=== PATIENT | female | born 1955 | race Caucasian/White ===

== ENCOUNTER 2016-12-04 15:15 | Inpatient (IN) | payer MEDICARE ==
[~2016-12-04] VITALS: Ht 152.4 cm; Wt 49.7 kg
[2016-12-04 16:45] VITALS: BP 120/81; PULSE 90; RESP 16; TEMP 97.8; O2SAT 97
[2016-12-04] MEDS ORDERED: PREG25 PO (17:04)
[2016-12-04] MEDS ORDERED: OXYC-395 PO (17:04)
[2016-12-04] MEDS ORDERED: MORP1TAB24 PO (17:04)
[2016-12-04] MEDS ORDERED: DIATRIZOATE MEGLUM/DIATRIZOATE SOD 9 ML CUP PO ONE (17:15)
[2016-12-04] MEDS ORDERED: PANTOPRAZOLE SOD 40 MG DELAYED RELEASE TAB PO ONE (17:30)
[2016-12-04] MEDS: SODIUM CHLOR 0.9% 1000 ML INJ 1,000 ML IV SCH (17:30)
[2016-12-04 20:00] VITALS: BP 123/85; PULSE 100; RESP 16; TEMP 97.3; O2SAT 94
--- NOTE | 2016-12-04 20:28 | MH ---
cc: MARGARITO BRASHER,MEIR Dueñas M.D. DATE OF ADMISSION: 12/04/2016 PRIMARY CARE PHYSICIAN Meir Cordero MD CHIEF COMPLAINT The patient was admitted directly from Dr. Cordero' office for evaluation of recurrent nausea, vomiting and weakness. HISTORY OF PRESENTING ILLNESS This is a 60-year-old unfortunate female with a known history of metastatic HER-2/mani overexpressing metastatic breast cancer that was originally diagnosed in 2012. She was found to have a liver lesion, extensive spinal lesions and a mass in the adrenal gland. She was treated with palliative chemotherapy, initially received Taxol and Herceptin, she tolerated that regimen. However, followup staging evaluation revealed progression of the disease. She was switched to Xeloda and Herceptin. Her disease progressed on that regimen and she was switched to Navelbine and Herceptin. Most recently she was receiving Herceptin along with immune therapy. She apparently tolerated that regimen well and her disease responded to that regimen to the point that her primary oncologist decided to hold the chemotherapy and treat her with immune therapy alone. She apparently was not showing signs of disease progression. She is developing recurrent nausea and vomiting which has especially gotten worse in the last week or so. She had several episodes of vomiting last Wednesday that finally resolved and she got sick again yesterday. Last night she vomited multiple times which was worsened with eating. She denies hematemesis, denies any significant abdominal pain. She suffers from chronic constipation. She has chronic pain and takes high-dose narcotics at home to keep the pain in control. She went to see Dr. Cordero and she was found to be clinically dehydrated, she was given IV fluid, labs were drawn. Her labs are okay but she remained quite weak and nauseous. Dr. Cordero recommended hospitalization for further evaluation as she is concerned about possible disease progression in the liver or metastasis to brain. The patient also reports having headaches. She has mild photophobia and phonophobia. She denies fever or chills. Denies night sweats. She apparently had lost weight earlier on but currently she is maintaining her weight. She denies melena or bright red blood per rectum. PAST MEDICAL HISTORY Significant for - 1. Metastatic breast cancer with liver, bone and adrenal gland metastases. The cancer is HER-2/mani positive and weakly ER positive. 2. History of osteoporosis. PAST SURGICAL HISTORY Significant for - 1. Biopsy. 2. Colonoscopy. 3. Port placement. SOCIAL HISTORY The patient used to smoke in the past, stopped smoking about 15 years ago. She used about one pack per day for 15-16 years. She drinks alcohol socially on occasion. Denies any drug abuse. She is and lives with her . 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 HOME MEDICATIONS She takes morphine twice daily for pain control along with oxycodone daily. She is on inpatient therapy. For detail of her medication, see attached med reconciliation sheet. ALLERGIES SHE IS ALLERGIC TO BONIVA AND FOSAMAX. FAMILY HISTORY Both of her parents are . Mother had oral cancer, she at the age of 64, she was a nonsmoker. Dad at the age of 63 from heart problem, he was a smoker. She has a brother and sister who are alive and healthy. REVIEW OF SYSTEMS Positive for headache, chronic constipation, chronic back pain, mild dizziness. She is able to ambulate holding onto her 's hand. She denies chest pain, dyspnea, orthopnea, paroxysmal nocturnal dyspnea. Denies cough or sputum production. Denies fever, chills, night sweats. She denies major depression or suicidal ideations. She has frequent urination. Denies dysuria or hematuria. Denies vaginal discharges. Otherwise, review of system is negative for 12 systems except for what is mentioned above. PHYSICAL EXAMINATION GENERAL: A middle-aged, pale-appearing female, appears older than stated age, lying in bed. She is awake, alert. She is oriented x3. VITAL SIGNS: Blood pressure 110/70, pulse of 90, respiration 18, she is afebrile, O2 sat 96%. HEAD: Head exam is normocephalic, atraumatic. EYE EXAM: Extraocular muscles are intact. Pupils are round and reactive. ENT: No throat congestion. No oral ulcers or thrush. Ears clear. NECK: Supple. No JVD. CARDIOVASCULAR: S1, S2 audible. Regular rhythm. No murmur or gallop. RESPIRATORY SYSTEM: Lungs are clear to auscultation. She has a port placement dressing on the chest. Port site appears okay. ABDOMEN: Soft, protuberant, bulky, nontender. Positive bowel sounds. No hepatosplenomegaly. EXTREMITIES: No pedal edema. NEUROLOGIC: Awake, alert and responsive. She is oriented x3. No facial asymmetry. Thyroid in the midline. Neck is supple. She is moving all four extremities. No cerebellar sign. Gait not tested. LABORATORY DATA White count 7.8, hemoglobin 11.9, hematocrit 35.6, platelet count of 153, MCV of 91.2. Sodium 140, potassium 3.8, chloride 104, bicarb 17.5, BUN of 10, creatinine 0.46, glucose 128, calcium 8.9. LFTs unremarkable. Lipase 83, amylase 40. ASSESSMENT 1. Weakness, nausea and vomiting. This is a middle-aged female with known history of metastatic cancer with metastasis to bone, liver and adrenal glands, concerns about possible progression of disease, rule out brain metastasis. Clinically not showing signs of obstruction at this time. Rule out side-effect of medications. 2. Chronic back pain due to known spinal mets, on narcotics. 3. Chronic constipation. 4. Metastatic breast cancer. PLAN 1. The patient admitted to the hospital. 2. We will put her on IV fluid. 3. We will put her on a regular diet. 4. We will give her analgesics. 5. Put her on Protonix. 6. Obtain CT scan of the abdomen and pelvis repeated. 7. Also obtain MRA of the brain. 8. Give her subcu Lovenox for DVT prophylaxis. 9. Resume home medications. 10. We will also consult her oncologist, Dr. Cordero. Depending on her finding, we will consider getting GI evaluation if the patient continues to have vomiting. The patient meets inpatient criteria due to her recurrent vomiting and underlying metastatic disease. She is quite frail and vulnerable, she can easily develop severe complications and meets inpatient evaluation and stabilization of her symptoms. Expected length of stay is 3-4 days. Possible discharge home when stable. MD OCHOA Alvarado/KAHLIL /5:10 PM /6:59 PM
[2016-12-04] MEDS: ACETAMINOPHEN 325 MG/10.15 ML UDC PO PRN (21:45)
[2016-12-04] MEDS: MORPHINE SULFATE 15 MG CONTROLLED RELEASE TAB PO SCH (21:58)
[2016-12-04] MEDS: PREGABALIN 25 MG CAP PO SCH (22:18)
[2016-12-04] MEDS ORDERED: IOHEXOL 350 MG/ML 10 ML VIAL (for RAD DIAG) IV ONE (23:15)
--- NOTE | 2016-12-04 23:28 | RADRPT ---
EXAM DATE/TIME: 12/04/2016 22:56 [facility] COMPARISON: No previous studies available for comparison. INDICATIONS : Breast carcinoma with liver, adrenal, and bone metastases. IV CONTRAST: 100 cc Omnipaque 350 (iohexol) IV ORAL CONTRAST: Prescribed oral contrast ingested. RADIATION DOSE: 11.10 CTDIvol (mGy) MEDICAL HISTORY : Carcinoma, breast. Metastatic disease. SURGICAL HISTORY : None. ENCOUNTER: Initial ACUITY: 1 day PAIN SCALE: 0/10 LOCATION: abdomen TECHNIQUE: Volumetric scanning of the abdomen and pelvis was performed. Using automated exposure control and ad justment of the mA and/or kV according to patient size, radiation dose was kept as low as reasonably achievable to obtain optimal diagnostic quality images. FINDINGS: LOWER LUNGS: The visualized lower lungs are clear. No evidence of pleural effusion. LIVER: There is an irregular shaped irregular margin, lesion in the posterior segment of the right lobe of t he liver measuring up to 4.4 cm. There is a satellite extension anteriorly which extends to the port a. No lesions seen in the left lobe. No calcified gallstones. SPLEEN: Normal size without lesion. PANCREAS: Within normal limits. KIDNEYS: Normal in size and shape. There is no mass, stone or hydronephrosis. There is a solitary oval hypod ense lesion in the cortex the midpole right kidney measuring 6 mm which cannot be further characteriz ed, but possibly represents a cyst. ADRENAL GLANDS: Mass in the crux of the left adrenal gland measuring 1.2 x 1.9 cm containing stippled calcifications. The right adrenal is normal in configuration. VASCULAR: There is no aortic aneurysm. BOWEL/MESENTERY: The stomach, small bowel, and colon demonstrate no acute abnormality. There is no free intraperitone al air or fluid. ABDOMINAL WALL: Within normal limits. RETROPERITONEUM: There is no lymphadenopathy. BLADDER: No wall thickening or mass. REPRODUCTIVE: Hysterectomy. INGUINAL: There is no lymphadenopathy or hernia. MUSCULOSKELETAL: Rounded sclerotic lesion posterior right L3 vertebral body, mixed lytic and sclerotic lesion involvin g the L4 vertebral body and left pedicle, right L5 vertebral body, scattered areas within the sacrum. A focal sclerotic lesion is seen in the left posterior supra-acetabular ilium. No fractures seen. CONCLUSION: Heterogeneous mass in the liver, left adrenal masses that do calcifications, and multiple osseous les ions in the lumbar spine and pelvis congruous with history of known metastatic breast cancer. Yogesh Alberto MD on December 04, 2016 at 23:20 Board Certified Radiologist. This report was verified electronically.
[2016-12-04] MEDS ORDERED: TEMAZEPAM 15 MG CAP PO PRN (23:30)
[2016-12-04] MEDS: ONDANSETRON HCL 4 MG/2 ML VIAL IV PUSH PRN (23:33)
[2016-12-05] VITALS: BP 123/85; PULSE 100; RESP 16; TEMP 97.3; O2SAT 94
[2016-12-05] MEDS: ACETAMINOPHEN 325 MG/10.15 ML UDC PO PRN (03:39)
[2016-12-05 04:00] VITALS: BP 122/74; PULSE 102; RESP 16; TEMP 97.1; O2SAT 95
[2016-12-05] MEDS: SODIUM CHLOR 0.9% 1000 ML INJ 1,000 ML IV SCH (05:25)
[2016-12-05 06:34] LABS: BICARBONATE 24.3 MEQ/L (21.0-32.0); POTASSIUM 3.4 MEQ/L (3.5-5.1)
[2016-12-05 07:14] LABS: HEMATOCRIT 31.5 % (35.0-46.0); MEAN CELL VOLUME 92.2 FL (80.0-100.0); MEAN CORPUSCULAR HEMOGLOBIN 30.3 PG (27.0-34.0); MEAN CORPUSCULAR HGB CONC 32.8 % (32.0-36.0); PLATELET COUNT 143 TH/MM3 (150-450); RED BLOOD COUNT 3.41 MIL/MM3 (4.00-5.30); RED CELL DISTRIBUTION WIDTH 12.7 % (11.6-17.2); REVIEW FLAG FINAL; WHITE BLOOD COUNT 4.8 TH/MM3 (4.0-11.0)
--- NOTE | 2016-12-05 07:26 | MB ---
cc: DEBORA SELLERS MD, RUBY ANNE E. M.D. DATE OF CONSULTATION: 12/04/2016 DATE OF : [address] Sellers. CHIEF COMPLAINT: Dr. Sellers requested a consultation for Mrs. Anton regarding HER2/mani over expressing breast cancer associated with intractable nausea and vomiting. HISTORY OF PRESENT ILLNESS Mrs. Anton is a 61-year-old woman well-known patient with a diagnosis of metastatic breast cancer. She was initially diagnosed November 01, 2013. She had liver mass consistent with breast origin. The tumor was weakly ER positive HER2/mani 3+ positive. She says she has had multiple lines of therapy. Most recently she was started on Taxotere, Herceptin and Perjeta on April 2016. By July 01, 2016 CT scan of the abdomen and pelvis showed a significant improvement in the hepatic metastatic disease and the bony metastatic disease was stable. She lives part of the year [facility]. She was last seen in July 2016. She was [facility] when she had her last scan coordinated with her oncologist. The treatment had significantly improved her liver metastatic disease. A CT from October 14, 2016 showed hepatic lesions decreased in size. Left adrenal mass was unchanged multiple osseous sclerotic lesions look unchanged, there was no new metastatic disease. At this juncture she was placed on Herceptin and Perjeta therapy alone. At this point Mrs. Anton describes that her symptoms began. She began to feel unwell after stopping the taxotere. Her last chemotherapy regimen from [facility] was November 03 when she received Herceptin and Perjeta alone. She came back to [place] and even prior to her first visit she had complained of nausea and vomiting. She was treated in clinic for her nausea and vomiting, presumed associated with her chemotherapy regimen on November 26, 2016. She felt better for a day. She came in the following day on November 27 for similar support and IV fluid hydration antiemetic therapy. Finally she came for her scheduled appointment December 04, 2016 the day of her admission. She reports not feeling better. She has concerning symptoms of dizziness, headaches and intractable nausea or vomiting. She denies any diarrhea. No melena or bright red blood per rectum. She is unable to take much p.o. Her pain is fairly well-controlled. She was found not to be a candidate for kyphoplasty for her bony metastatic disease. She feels that she has worsened since stopping her Taxotere and while on Herceptin and projeta only. LABORATORY FINDINGS: Her labs were reviewed her CBC is normal. Comprehensive metabolic profile is significant for mild elevation of glucose, liver function is normal. Amylase and lipase normal. In light of her persistent intractable nausea and vomiting and new neurologic symptoms admission to the hospital was coordinated through Dr. Sellers. PAST MEDICAL HISTORY: Past medical history metastatic breast cancer Osteoporosis peripheral neuropathy intractable nausea and vomiting. PAST SURGICAL HISTORY Port placement Colonoscopy Liver biopsy FAMILY HISTORY: Miss Anton's mother at age 64 from cancer. Father of heart attack at age 63. SOCIAL HISTORY She is , lives with her . She quit smoking 10 years ago. She drinks alcohol occasionally. She denies any illicit drug use. ALLERGIES Boniva Fosamax MEDICATIONS current medication include; 1. Lyrica. 2. Morphine sulfate extended release 50 mg twice a day. 3. Oxycodone p.r.n. 4. Ondansetron. PHYSICAL EXAMINATION VITAL SIGNS: Temperature 98.7 heart rate 90, respiratory rate 16, blood pressure 180/81, saturation 97%. HEAD, EYES, EARS, NOSE, AND THROAT: Miss Anton is a well-developed, short-statured woman with kyphosis. She looks tired and chronically ill her pupils are nonreactive to light accommodation and she has alopecia. The oropharynx is dry. NECK: Neck is supple. LUNGS: Lungs are clear to auscultation. CARDIOVASCULAR SYSTEM: Exam reveals a normal rate, rhythm. ABDOMEN: The abdomen is benign, soft, nontender. EXTREMITIES: Lower extremities with no edema. Good pulses. She has dizziness when she stands up. She has unsteady gait. LABORATORY DATA Normal CBC and CMP except for mild elevation in glucose. ASSESSMENT/PLAN Mrs. Anton is a 61-year-old woman with long history of metastatic breast cancer with low ER positivity and HER2/mani over expression. She was doing well with response to combination chemotherapy with taxene, Herceptin and Perjeta. She has progressive symptoms of intractable nausea, vomiting, headache, dizziness and unsteadiness over the last several weeks. She reports this is temporally related to stopping the Taxotere. A lengthy discussion with Miss Anton, I plan to evaluate further her GI symptoms. Her antiemetic therapy will be optimized. IV fluid support provided until we could determine the nature of her nausea and vomiting. I am concerned that she has progression of disease. She does have residual liver metastatic disease with her treatment. CT scan of abdomen and pelvis will be coordinated as discussed with Dr. Sellers. We discussed the concern for MANAGER SHIPPING metastatic disease. She has some neurologic symptoms as well as the nausea and vomiting. She has headaches. We will check MRI of the brain. She reports requiring some sedation and anxiolytic to have the MRI of the brain. They are concerned about the MANAGER SHIPPING metastatic disease given this area of failure for the patient who are responding to her directed therapy. Her further treatment depends on the above findings. Pain medication continue. Her questions were answered to her satisfaction. MD BIN Murdock/ashok /6:36 PM /7:05 AM
[2016-12-05] MEDS ORDERED: GADODIAMIDE PF 287 MG/ML 10 ML VIAL (for RAD MRI) IV ONE (07:50)
[2016-12-05 08:00] VITALS: BP 136/82; PULSE 88; RESP 16; TEMP 97; O2SAT 96
[2016-12-05] MEDS: ONDANSETRON HCL 4 MG/2 ML VIAL IV PUSH PRN ×3 (08:29→18:25)
[2016-12-05] MEDS: PREGABALIN 25 MG CAP PO SCH ×2 (08:29→20:29)
[2016-12-05] MEDS: MORPHINE SULFATE 15 MG CONTROLLED RELEASE TAB PO SCH ×2 (08:30→20:29)
[2016-12-05] MEDS: HYDROmorphone HCL PF 1 MG/ML VIAL IV PRN ×3 (09:29→20:35)
--- NOTE | 2016-12-05 09:52 | RADRPT ---
EXAM DATE/TIME: 12/05/2016 07:37 [facility] COMPARISON: No previous studies available for comparison. INDICATIONS : Metastatic disease. CONTRAST: 10 cc Omniscan (gadodiamide) IV MEDICAL HISTORY : Carcinoma, breast. SURGICAL HISTORY : None. ENCOUNTER: Subsequent ACUITY: 2 day PAIN SCORE: 0/10 LOCATION: cranial TECHNIQUE: Multiplanar, multisequence MRI of the brain was performed both prior to and following the administrat ion of paramagnetic contrast. FINDINGS: CEREBRUM: There is ventriculomegaly with transependymal fluid migration. In the cerebrum no brain lesions are s een. There is no midline shift. No acute blood products are visualized. WHITE MATTER: There is mild periventricular and subcortical white matter signal change. POSTERIOR FOSSA: There is an enhancing brain mass in the left cerebellum measuring approximately 2.1 x 1.8 x 2.2 cm. T here is marked surrounding vasogenic edema with local mass effect on the adjacent structures and the edema is causing partial obstruction of the fourth ventricle and cerebral aqueduct. Additionally, the re is upward transtentorial herniation with effacement of the quadrigeminal plate cistern and the cer ebellar tonsils extend through the foramen magnum inferiorly by 10 mm. DIFFUSION IMAGING: No focal areas of restricted diffusion are seen. No evidence of acute infarction. EXTRACRANIAL: The visualized portions of the orbits and paranasal sinuses are unremarkable. POST-CONTRAST: There is an enhancing brain mass in the left cerebellum measuring up to 2.2 cm. CONCLUSION: 1. There is a solitary enhancing left cerebellar mass measuring up to 2.2 cm. There is marked surroun ding vasogenic edema and local mass effect causing obstruction of the fourth ventricle. This results in ventriculomegaly with transependymal fluid migration. Although primary brain lesions are included in the differential diagnosis, given the history provided, metastatic disease is the favored etiology . 2. Additionally, the local mass effect from the edema surrounding the left cerebellar mass is causing upward transtentorial herniation and downward herniation of the cerebellar tonsils through the marina en magnum. John Velasquez MD on December 05, 2016 at 9:43 Board Certified Radiologist. This report was verified electronically.
--- NOTE | 2016-12-05 11:35 | RADRPT ---
EXAM DATE/TIME: 12/05/2016 10:34 [facility] COMPARISON: MRI BRAIN W & W/O CONTRAST, December 05, 2016, 7:37. INDICATIONS : Cephalgia. RADIATION DOSE: 32.88 CTDIvol (mGy) MEDICAL HISTORY : Carcinoma, breast. SURGICAL HISTORY : None. ENCOUNTER: Initial ACUITY: 1 day PAIN SCALE: 5/10 LOCATION: cranial TECHNIQUE: Multiple contiguous axial images were obtained of the head. Using automated exposure control and adj ustment of the mA and/or kV according to patient size, radiation dose was kept as low as reasonably a chievable to obtain optimal diagnostic quality images. FINDINGS: There is abnormal edema within the left cerebellum secondary to a previously documented mass with kenia rounding vasogenic edema. There is has mass effect on the adjacent fourth ventricle causing obstructi on. As a result there is ventriculomegaly with abnormal low density around the ventricles suspicious for transependymal fluid migration. There is no midline shift. However, there is upward transtentoria l herniation with effacement of the perimesencephalic cisterns and there is downward herniation of th e cerebellar tonsils through the foramen magnum. No blood products are visualized. CONCLUSION: 1. Edema in the left cerebellum causing obstruction of the of fourth ventricle and findings suggestiv e of obstructive hydrocephalus. 2. Additionally, there is upward transtentorial herniation as well as downward cerebellar herniation of the tonsils through the foramen magnum. John Velasquez MD on December 05, 2016 at 11:31 Board Certified Radiologist. This report was verified electronically.
[2016-12-05 12:00] VITALS: BP 148/89; PULSE 90; RESP 16; TEMP 96.6; O2SAT 99
[2016-12-05] MEDS ORDERED: DEXAMETHASONE SOD PHOS 4 MG/ML VIAL IV PUSH SCH ×2 (13:00→18:00)
[2016-12-05] MEDS ORDERED: MANNITOL 12.5 GM/50 ML VIAL IV ONE (13:15)
--- NOTE | 2016-12-05 14:11 | PD.ONC.PN ---
Subjective Subjective Remarks Afebrile overnight. Patient is complaining of a headache and nausea. She does not have any other pain at this time. She has no shortness of breath. Visitor at bedside. Objective Data Date Time Temp Pulse Resp B/P Pulse Ox O2 Delivery O2 Flow Rate FiO2 12/05/16 12:00 96.6 90 16 148/89 99 12/05/16 08:00 97.0 88 16 136/82 96 12/05/16 04:00 97.1 102 16 122/74 95 12/05/16 00:00 97.3 100 16 123/85 94 12/04/16 20:00 97.3 100 16 123/85 94 12/04/16 16:45 97.8 90 16 120/81 97 12/05/16 12/05/16 12/05/16 07:00 15:00 23:00 Intake Total 240 ml 1000 ml Balance 240 ml 1000 ml Result Diagram: 12/05/16 0425 12/05/16 0425 Laboratory Results Laboratory Tests Test 12/05/16 04:25 White Blood Count 4.8 TH/MM3 Red Blood Count 3.41 MIL/MM3 Hemoglobin 10.3 GM/DL Hematocrit 31.5 % Mean Corpuscular Volume 92.2 FL Mean Corpuscular Hemoglobin 30.3 PG Mean Corpuscular Hemoglobin 32.8 % Concent Red Cell Distribution Width 12.7 % Platelet Count 143 TH/MM3 Mean Platelet Volume 8.1 FL Sodium Level 139 MEQ/L Potassium Level 3.4 MEQ/L Chloride Level 105 MEQ/L Carbon Dioxide Level 24.3 MEQ/L Anion Gap 10 MEQ/L Blood Urea Nitrogen 8 MG/DL Creatinine 0.49 MG/DL Estimat Glomerular Filtration 128 ML/MIN Rate Random Glucose 104 MG/DL Calcium Level 8.4 MG/DL Imaging Studies Last [address] 12/05/16 0000 Signed Impressions: Service Date/Time: Monday, December 05, 2016 10:34 - CONCLUSION: 1. Edema in the left cerebellum causing obstruction of the of fourth ventricle and findings suggestive of obstructive hydrocephalus. 2. Additionally, there is upward transtentorial herniation as well as downward cerebellar herniation of the tonsils through the foramen magnum. John Velasquez MD Brain MRI 12/05/16 0000 Signed Impressions: Service Date/Time: Monday, December 05, 2016 07:37 - CONCLUSION: 1. There is a solitary enhancing left cerebellar mass measuring up to 2.2 cm. There is marked surrounding vasogenic edema and local mass effect causing obstruction of the fourth ventricle. This results in ventriculomegaly with transependymal fluid migration. Although primary brain lesions are included in the differential diagnosis, given the history provided, metastatic disease is the favored etiology. 2. Additionally, the local mass effect from the edema surrounding the left cerebellar mass is causing upward transtentorial herniation and downward herniation of the cerebellar tonsils through the foramen magnum. John Velasquez MD Administered Medications Medications (Trade) Dose Ordered Sig/Andrew Route PRN Reason Start Time Stop Time Status Last Admin Dose Admin Morphine Sulfate (Oramorph Sr) 15 mg BID PO 12/04/16 21:00 12/05/16 08:30 Oxycodone HCl (Roxicodone) 10 mg Q4H PRN PO PAIN 12/04/16 17:30 12/05/16 04:29 Pregabalin (Lyrica) 25 mg BID PO 12/04/16 21:00 12/05/16 08:29 Acetaminophen (Tylenol 325 Mg/ 10 ml Liq) 300 mg Q6H PRN PO HEADACHE 12/04/16 21:00 12/05/16 03:39 Ondansetron HCl (Zofran Inj) 4 mg Q6HR PRN IV PUSH n/v 12/04/16 23:30 12/05/16 13:38 Hydromorphone HCl (Dilaudid Pf Inj) 1 mg Q4H PRN IV PAIN > 5 12/05/16 09:30 12/05/16 09:29 Objective Remarks GENERAL: Older female lying in bed holding her hand to her head. SKIN: Warm and dry. HEAD: Normocephalic. EYES: No injection or drainage. NECK: Supple, trachea midline. CARDIOVASCULAR: +S1/S2. No murmur appreciated. RESPIRATORY: Breath sounds equal bilaterally. No accessory muscle use. GASTROINTESTINAL: Abdomen soft, non-tender, nondistended. EXTREMITIES: No edema. NEUROLOGICAL: A&O 3. No obvious focal deficits. Normal speech. Assessment/Plan Problem List: (1) Malignant neoplasm of breast metastatic to brain Status: Acute Plan: -- Neurosurgery consulted -- MRI of the brain shows a solitary enhancing left cerebellar mass measuring up to 2.2 cm with edema causing upward transtentorial herniation and downward herniation of the cerebellar tonsils through the foramen magnum. -- Likely metastatic in origin. Hx/Workup: Mrs. Quinones breast cancer was originally diagnosed November 01, 2013. She had liver mass consistent with breast origin. The tumor was weakly ER positive HER-2/mani positive. She was most recently on chemotherapy in April 2016 with Taxotere, Herceptin, and Perjeta. CT scan of the abdomen and pelvis in June 2016 showed a significant improvement in hepatic metastatic disease and the bony metastatic disease was stable. She has recently returned to [place] for the winter. Her last chemotherapy regimen was November 03 when she received Herceptin and Perjeta alone. She began to feel unwell since stopping the Taxotere. She was recently has been complaining of dizziness and unsteadiness over the last several weeks (2) Obstructive hydrocephalus Status: Acute Plan: --Neurosurgery consulted. --Mannitol ordered x1 dose; Decadron 6mg Q6H. -- Neuro checks Assessment 61 y/o female who was a direct admit for nausea, vomiting and weakness from medical oncology clinic. Plan 1. Appreciate neurosurgery input on L cerebellar mass. 2. Consult radiation oncology 3. Continue decadron 6mg IV Q6H. 4. Supportive care. Attending Statement The exam, history, and the medical decision-making described in the above note were completed with the assistance of the mid-level provider. I reviewed and agree with the findings presented. I attest that I had a [id number] encounter with the patient on the same day, and personally performed and documented my assessment and findings in the medical record. Has new brain mets and metastatic disease to vertebral spine, liver and adrenal glands. Neurosurgery consulted. Rad Oncology consulted. Start IV Decadron 6mg IV TID. Discussed with patient and family. Will get CT scan of chest with contrast to assess disease. Discussed case with the specialists. Problem Qualifiers (1) Malignant neoplasm of breast metastatic to brain: Qualified Code: C50.912 - Malignant neoplasm of breast metastatic to brain, left Chary Watts MEGA Dec 05, 2016 14:11 Shoaib Hillman MD Dec 06, 2016 00:08
[2016-12-05] MEDS ORDERED: KCL IV ONE (14:45)
[2016-12-05] MEDS ORDERED: 1/2 NS IV ONE (14:45)
--- NOTE | 2016-12-05 15:01 | HHI.PR ---
Subjective Remarks Pain all over nausea and vomiting almost constant. Not eating headache present Objective Objective Results - Vital Signs Date Time Temp Pulse Resp B/P Pulse Ox O2 Delivery O2 Flow Rate FiO2 12/05/16 12:00 96.6 90 16 148/89 99 12/05/16 08:00 97.0 88 16 136/82 96 12/05/16 04:00 97.1 102 16 122/74 95 12/05/16 00:00 97.3 100 16 123/85 94 12/04/16 20:00 97.3 100 16 123/85 94 12/04/16 16:45 97.8 90 16 120/81 97 I/O 12/04/16 12/04/16 12/04/16 12/05/16 12/05/16 12/05/16 07:00 15:00 23:00 07:00 15:00 23:00 Intake Total 960 ml 240 ml 1000 ml Balance 960 ml 240 ml 1000 ml Intake Oral 960 ml 240 ml IV Total 1000 ml # Voids 0 1 Result Diagram: 12/05/16 0425 12/05/16 0425 Medications and IVs Added IV Potassium dose X 1 with 250 IVF ROS General: Fatigue, Weakness, Other (10 point ROS done. Positive findings include fatigue, weakness, headache, constant nausea and vomiting, no appetite. All other findings unremarkable at this time.) Neuro/MS: Headache Physical Exam Physical Exam PHYSICAL EXAMINATION GENERAL: This is thin, frail female who is pale and looks in distress with pain, nausea, and vomiting. is at her side. She is drowsy but responds to verbal stimuli. Eyes closed most of the time. HEAD: Atraumatic OROPHARYNGEAL: Oropharynx without erythema or edema., dry NECK: Supple. thin. No nuchal rigidity or lymphadenopathy. Trachea midline without deviation. CARDIAC: Regular rhythm, regular rate, S1 and S2 are heard. Murmur none; no gallops or rubs. LUNGS: Clear to auscultation bilaterally. Low air volumes no wheeze, rhonchi or rales. No use of accessory muscles on inspiration or expiration. ABDOMEN: Soft, nontender, no organomegaly or masses lap palpation. Bowel sounds are heard, hypoactive in all four quadrants. No rebound. No guarding. EXTREMITIES: No edema. Pulses equal bilateral. Nocyanosis. Moves extremities on command, weak. NEUROLOGICAL: Patient mood and affect flat. No focal deficit. Weak bilateral hand sourcing intern. SKIN:Warm , dry, pale, mild yellow tint to face. Objective Remarks I am in pain and so nauseated. A/P Assessment and Plan ASSESSMENT Cerebellar mass with hydrocephalus Weakness, nausea and vomiting almost continuous. This is a middle-aged female with known history of metastatic cancer with metastasis to bone, and now brain. Chronic back pain due to known spinal mets, on narcotics. Chronic constipation. Metastatic breast cancer with spinal metastases Hypokalemia PLAN 1. Pain nausea medications prn 2. We will put her on IV fluid. 3. We will put her on a regular diet, but for now she is not eating. 4. We will give her analgesics. 5. Put her on Protonix. 6. Obtain CT scan of the abdomen and pelvis repeated, with findings discussed per Neurosurgery. 7. Also obtain MRA of the brain with discussion findings as with neurosurgery. 8. Give her subcu Lovenox for DVT prophylaxis. 9. Resume home medications. 10. We will also consult her oncologist, Dr. Cordero. 11. Neurosurgery consult. Speaking to family today about findings of scans. Patient has large lesion on brain which may respond to radiation versus surgical procedure. Steroids added. Appeciate her expert opinion. Supplement IV Potassium given X 1 today. BMP in am. Discharge Planning initiated. Discussed With: Nurse, Family, Other (Dr. Sellers. Saw patient on his behalf. Discussed with Neurosurgeon; treatment plan) Nereida Gamble Dec 05, 2016 15:01
--- NOTE | 2016-12-05 15:17 | PD.CONS ---
HPI Service Neurosurgery Consult Requested By Oncology Reason for Consult Left cerebellar mass Primary Care Physician Unknown History of Present Illness 61 yr old lady diagnosed in October 2013 with metastatic breast Her2/mani 3+ + ve CA to the lumbar spine and liver was doing very well on chemotherapy until she developed headaches and nausea last week, which worsened significantly over the past 2 days. She underwent a CT followed by an MRI of the brain which showed a 2.2 cm left cerebellar hemisphere mass with surrounding cytotoxic edema causing obstructive hydrocephalus. She was admitted and placed on IV decadron. She remains alert and oriented x 3 and ambulatory. Her back pain is chronically about 6/10 on the present medications. She states that at this point her goal is to do what she can to stay alive. Review of Systems Constitutional: COMPLAINS OF: Fatigue Ears, nose, mouth, throat: DENIES: Tinnitus, Hearing loss, Vertigo, Nasal discharge, Oral lesions, Throat pain, Hoarseness, Ear Pain, Running Nose, Epistaxis, Sinus Pain, Toothache, Odynophagia Gastrointestinal: COMPLAINS OF: Vomiting, DENIES: Abdominal pain, Black stools , Bloody stools, Constipation, Diarrhea, Nausea, Difficulty Swallowing, Anorexia Musculoskeletal: COMPLAINS OF: Back pain Hematologic/lymphatic: DENIES: Bruising, Lymphadenopathy Neurologic: COMPLAINS OF: Poor Balance Past Family Social History Allergies: Coded Allergies: Boniva (Verified Allergy, Severe, Twitching, 12/04/16) like electric shock per pt Fosamax (Verified Allergy, Unknown, 12/04/16) Uncoded Allergies: bon (Allergy, Severe, Twitching, 12/04/16) states "electric shock" Past Medical History Healthy prior to having breast CA, on taxotere until recently, still on herceptin and perjeta. Lumbar mets treated in 2012 with RT Past Surgical History Port placement, liver bx Reported Medications Reported Meds & Active Scripts Active Reported Lyrica (Pregabalin) 25 Mg Cap 25 Mg PO BID Oxycodone (Oxycodone HCl) 10 Mg Tab 10 Mg PO Q4H PRN Morphine ER (Morphine Sulfate) 15 Mg Tab 15 Mg PO BID Family History Mother of CA, sister has brain lesions Social History lives in [facility] from March to october Physical Exam Vital Signs Vital Signs Date Time Temp Pulse Resp B/P Pulse Ox O2 Delivery O2 Flow Rate FiO2 12/05/16 12:00 96.6 90 16 148/89 99 12/05/16 08:00 97.0 88 16 136/82 96 12/05/16 04:00 97.1 102 16 122/74 95 12/05/16 00:00 97.3 100 16 123/85 94 12/04/16 20:00 97.3 100 16 123/85 94 12/04/16 16:45 97.8 90 16 120/81 97 Physical Exam Alert, pleasant lady, jaundiced appearance, EOMI, face symmetric, voice intact No pronator drift, minimal difficulty with finger to nose ion and sitting balance but has a list reportedly with walking. No focal weakness in both upper and lower extremities, at least 4/5 in all muscle gps, No sensory level or radicular symptoms. No spasticity, no clonus or Babinski Laboratory Laboratory Tests Test 12/05/16 04:25 White Blood Count 4.8 Red Blood Count 3.41 Hemoglobin 10.3 Hematocrit 31.5 Mean Corpuscular Volume 92.2 Mean Corpuscular Hemoglobin 30.3 Mean Corpuscular Hemoglobin 32.8 Concent Red Cell Distribution Width 12.7 Platelet Count 143 Mean Platelet Volume 8.1 Sodium Level 139 Potassium Level 3.4 Chloride Level 105 Carbon Dioxide Level 24.3 Anion Gap 10 Blood Urea Nitrogen 8 Creatinine 0.49 Estimat Glomerular Filtration 128 Rate Random Glucose 104 Calcium Level 8.4 Result Diagram: 12/05/16 0425 12/05/16 0425 Imaging Last Impressions Head CT 12/05/16 0000 Signed Impressions: Service Date/Time: Monday, December 05, 2016 10:34 - CONCLUSION: 1. Edema in the left cerebellum causing obstruction of the of fourth ventricle and findings suggestive of obstructive hydrocephalus. 2. Additionally, there is upward transtentorial herniation as well as downward cerebellar herniation of the tonsils through the foramen magnum. John Velasquez MD Brain MRI 12/05/16 0000 Signed Impressions: Service Date/Time: Monday, December 05, 2016 07:37 - CONCLUSION: 1. There is a solitary enhancing left cerebellar mass measuring up to 2.2 cm. There is marked surrounding vasogenic edema and local mass effect causing obstruction of the fourth ventricle. This results in ventriculomegaly with transependymal fluid migration. Although primary brain lesions are included in the differential diagnosis, given the history provided, metastatic disease is the favored etiology. 2. Additionally, the local mass effect from the edema surrounding the left cerebellar mass is causing upward transtentorial herniation and downward herniation of the cerebellar tonsils through the foramen magnum. John Velasquez MD Abdomen/Pelvis CT 12/04/16 0000 Signed Impressions: Service Date/Time: Sunday, December 04, 2016 22:56 - CONCLUSION: Heterogeneous mass in the liver, left adrenal masses that do calcifications, and multiple osseous lesions in the lumbar spine and pelvis congruous with history of known metastatic breast cancer. Yogesh Alberto MD Assessment and Plan Diagnosis: (1) Malignant neoplasm of breast metastatic to brain Plan: The lesion can be treated with surgically. However i am hoping given the patient's liver and spinal disease that we may consider radiosurgery if the hydrocephalus improves with decadron. (2) Obstructive hydrocephalus Plan: Mannitol and decadron were initiated today, I will follow closely. Problem Qualifiers (1) Malignant neoplasm of breast metastatic to brain: Qualified Code: C50.912 - Malignant neoplasm of breast metastatic to brain, left Baltazar Paris Dec 05, 2016 15:17
[2016-12-05 16:00] VITALS: BP 113/87; PULSE 95; RESP 16; TEMP 98.4; O2SAT 97
[2016-12-05] MEDS: DEXAMETHASONE SOD PHOS 20 MG/5 ML VIAL IV PUSH SCH (17:31)
[2016-12-05 18:37] LABS: BLOOD, URINE NEG (NEG); COMMENT (UR) CULTURE INDICATED; CULTURE IF INDICATED CULTURE INDICATED; GLUCOSE,URINE NEG (NEG); KETONE, URINE 10 mg/dL (NEG); NITRITE,URINE NEG (NEG); URINE COLOR COLORLESS (YELLW/STRAW)
[2016-12-05 20:00] VITALS: BP 121/93; PULSE 106; RESP 18; TEMP 98.1; O2SAT 95
[2016-12-06] VITALS: BP 137/89; PULSE 104; RESP 18; TEMP 97.2; O2SAT 94
[2016-12-06] MEDS: HYDROmorphone HCL PF 1 MG/ML VIAL IV PRN ×2 (00:09→04:20)
[2016-12-06] MEDS: ONDANSETRON HCL 4 MG/2 ML VIAL IV PUSH PRN ×3 (00:09→10:05)
[2016-12-06 04:00] VITALS: BP 112/77; PULSE 110; RESP 18; TEMP 98.5; O2SAT 95
[2016-12-06] MEDS: DEXAMETHASONE SOD PHOS 20 MG/5 ML VIAL IV PUSH SCH ×4 (05:44→17:25)
[2016-12-06 06:39] LABS: AUTOMATED NEUTROPHIL # 3.5 TH/MM3 (1.8-7.7); BASOPHIL % 0.1 % (0.0-2.0); HEMATOCRIT 32.6 % (35.0-46.0); HEMO FLAGS DIFF FINAL; LYMPH % 8.5 % (9.0-44.0); LYMPHOCYTE # 0.3 TH/MM3 (1.0-4.8); MEAN CELL VOLUME 91.6 FL (80.0-100.0); MEAN CORPUSCULAR HEMOGLOBIN 30.7 PG (27.0-34.0); MEAN CORPUSCULAR HGB CONC 33.5 % (32.0-36.0); MONO % 2.4 % (0.0-8.0); PLATELET COUNT 157 TH/MM3 (150-450); RED BLOOD COUNT 3.56 MIL/MM3 (4.00-5.30); RED CELL DISTRIBUTION WIDTH 12.6 % (11.6-17.2); WHITE BLOOD COUNT 3.9 TH/MM3 (4.0-11.0)
[2016-12-06 06:46] LABS: ALKALINE PHOSPHATASE 70 U/L (45-117); ALT (GPT) 15 U/L (10-53); ANION GAP 10 MEQ/L (5-15); AST (GOT) 9 U/L (15-37); BICARBONATE 25.5 MEQ/L (21.0-32.0); BLOOD UREA NITROGEN 14 MG/DL (7-18); CHLORIDE 101 MEQ/L (98-107); GLOMERULAR FILTRATION RATE 131 ML/MIN (>89); POTASSIUM 3.8 MEQ/L (3.5-5.1); SODIUM (NA) 136 MEQ/L (136-145); TOTAL BILIRUBIN ADULT 0.5 MG/DL (0.2-1.0)
[2016-12-06 07:09] LABS: PROTHROMBIN TIME - PATIENT 11.6 SEC (9.8-11.6)
[2016-12-06 08:00] VITALS: BP 135/87; PULSE 101; RESP 18; TEMP 97.7; O2SAT 95
--- NOTE | 2016-12-06 08:35 | PD.ONC.PN ---
Subjective Subjective Remarks Afebrile overnight. Patient was just getting out of the shower on approach. She states that her headache is mostly gone and gives a 1 out of 10 in intensity. She has no other complaints. Objective Data Date Time Temp Pulse Resp B/P Pulse Ox O2 Delivery O2 Flow Rate FiO2 12/06/16 04:00 98.5 110 18 112/77 95 12/06/16 00:00 97.2 104 18 137/89 94 12/05/16 20:00 98.1 106 18 121/93 95 12/05/16 16:00 98.4 95 16 113/87 97 12/05/16 12:00 96.6 90 16 148/89 99 12/06/16 12/06/16 12/06/16 07:00 15:00 23:00 Intake Total 480 ml Output Total 300 ml Balance 180 ml Result Diagram: 12/06/16 0545 12/06/16 0545 Laboratory Results Laboratory Tests Test 12/05/16 12/06/16 15:30 05:45 Urine Color COLORLESS Urine Turbidity CLEAR Urine pH 7.0 Urine Specific [place] 1.020 Urine Protein NEG mg/dL Urine Glucose (UA) NEG mg/dL Urine Ketones 10 mg/dL Urine Occult Blood NEG Urine Nitrite NEG Urine Bilirubin NEG Urine Urobilinogen LESS THAN 2.0 MG/DL Urine Leukocyte Esterase NEG Urine RBC 1 /hpf Urine WBC 11 /hpf Microscopic Urinalysis Comment CULTURE INDICATED White Blood Count 3.9 TH/MM3 Red Blood Count 3.56 MIL/MM3 Hemoglobin 10.9 GM/DL Hematocrit 32.6 % Mean Corpuscular Volume 91.6 FL Mean Corpuscular Hemoglobin 30.7 PG Mean Corpuscular Hemoglobin 33.5 % Concent Red Cell Distribution Width 12.6 % Platelet Count 157 TH/MM3 Mean Platelet Volume 7.4 FL Neutrophils (%) (Auto) 89.0 % Lymphocytes (%) (Auto) 8.5 % Monocytes (%) (Auto) 2.4 % Eosinophils (%) (Auto) 0.0 % Basophils (%) (Auto) 0.1 % Neutrophils # (Auto) 3.5 TH/MM3 Lymphocytes # (Auto) 0.3 TH/MM3 Monocytes # (Auto) 0.1 TH/MM3 Eosinophils # (Auto) 0.0 TH/MM3 Basophils # (Auto) 0.0 TH/MM3 CBC Comment DIFF FINAL Differential Comment Prothrombin Time 11.6 SEC Prothromb Time International 1.0 RATIO Ratio Sodium Level 136 MEQ/L Potassium Level 3.8 MEQ/L Chloride Level 101 MEQ/L Carbon Dioxide Level 25.5 MEQ/L Anion Gap 10 MEQ/L Blood Urea Nitrogen 14 MG/DL Creatinine 0.48 MG/DL Estimat Glomerular Filtration 131 ML/MIN Rate Random Glucose 114 MG/DL Calcium Level 8.8 MG/DL Total Bilirubin 0.5 MG/DL Aspartate Amino Transf 9 U/L (AST/SGOT) Alanine Aminotransferase 15 U/L (ALT/SGPT) Alkaline Phosphatase 70 U/L Total Protein 7.2 GM/DL Albumin 3.4 GM/DL Culture Results Microbiology Date/Time Procedure Status Source Growth 12/05/16 15:30 Urine Culture Received Urine Clean Catch Pending Imaging Studies Last Impressions Head CT 12/05/16 0000 Signed Impressions: Service Date/Time: Monday, December 05, 2016 10:34 - CONCLUSION: 1. Edema in the left cerebellum causing obstruction of the of fourth ventricle and findings suggestive of obstructive hydrocephalus. 2. Additionally, there is upward transtentorial herniation as well as downward cerebellar herniation of the tonsils through the foramen magnum. John Velasquez MD Brain MRI 12/05/16 0000 Signed Impressions: Service Date/Time: Monday, December 05, 2016 07:37 - CONCLUSION: 1. There is a solitary enhancing left cerebellar mass measuring up to 2.2 cm. There is marked surrounding vasogenic edema and local mass effect causing obstruction of the fourth ventricle. This results in ventriculomegaly with transependymal fluid migration. Although primary brain lesions are included in the differential diagnosis, given the history provided, metastatic disease is the favored etiology. 2. Additionally, the local mass effect from the edema surrounding the left cerebellar mass is causing upward transtentorial herniation and downward herniation of the cerebellar tonsils through the foramen magnum. John Velasquez MD Abdomen/Pelvis CT 12/04/16 0000 Signed Impressions: Service Date/Time: Sunday, December 04, 2016 22:56 - CONCLUSION: Heterogeneous mass in the liver, left adrenal masses that do calcifications, and multiple osseous lesions in the lumbar spine and pelvis congruous with history of known metastatic breast cancer. Yogesh Alberto MD Administered Medications Medications (Trade) Dose Ordered Sig/Andrew Route PRN Reason Start Time Stop Time Status Last Admin Dose Admin Morphine Sulfate (Oramorph Sr) 15 mg BID PO 12/04/16 21:00 12/05/16 20:29 Oxycodone HCl (Roxicodone) 10 mg Q4H PRN PO PAIN 12/04/16 17:30 12/05/16 04:29 Pregabalin (Lyrica) 25 mg BID PO 12/04/16 21:00 12/05/16 20:29 Acetaminophen (Tylenol 325 Mg/ 10 ml Liq) 300 mg Q6H PRN PO HEADACHE 12/04/16 21:00 12/05/16 03:39 Ondansetron HCl (Zofran Inj) 4 mg Q6HR PRN IV PUSH n/v 12/04/16 23:30 12/06/16 05:43 Hydromorphone HCl (Dilaudid Pf Inj) 1 mg Q4H PRN IV PAIN > 5 12/05/16 09:30 12/06/16 04:20 Dexamethasone Sodium Phosphate (Decadron Inj) 6 mg Q6HR IV PUSH 12/05/16 18:00 12/06/16 05:44 Objective Remarks GENERAL: Older female, walking around her room in no distress. SKIN: Warm and dry. Port in place to right upper chest. Asymptomatic. HEAD: Normocephalic. EYES: No injection or drainage. NECK: Supple, trachea midline. CARDIOVASCULAR: +S1/S2. No murmur appreciated. RESPIRATORY: Lungs clear throughout. Breathing easy and unlabored. GASTROINTESTINAL: Abdomen soft, non-tender, nondistended. EXTREMITIES: No cyanosis, or edema. MUSCULOSKELETAL: Adequate muscle tone. NEUROLOGICAL: Equal home day care provider strength. Normal speech. No obvious focal deficits. Assessment/Plan Problem List: (1) Malignant neoplasm of breast metastatic to brain Status: Acute Plan: -- Radiation Oncology consulted -- Per neurosurgery, this is resectable; however we will try radiation first. -- MRI of the brain shows a solitary enhancing left cerebellar mass measuring up to 2.2 cm with edema causing upward transtentorial herniation and downward herniation of the cerebellar tonsils through the foramen magnum. -- Likely metastatic in origin. Hx/Workup: Mrs. Quinones breast cancer was originally diagnosed November 01, 2013. She had liver mass consistent with breast origin. The tumor was weakly ER positive HER-2/mani positive. She was most recently on chemotherapy in April 2016 with Taxotere, Herceptin, and Perjeta. CT scan of the abdomen and pelvis in June 2016 showed a significant improvement in hepatic metastatic disease and the bony metastatic disease was stable. She has recently returned to [place] for the winter. Her last chemotherapy regimen was November 03 when she received Herceptin and Perjeta alone. She began to feel unwell since stopping the Taxotere. She recently has been complaining of dizziness and unsteadiness over the last several weeks. (2) Obstructive hydrocephalus Status: Acute Plan: -- Neurosurgery following. -- Decadron 6mg IV Q6H. -- Neuro checks -- Headache much improved Assessment 61 y/o female who was a direct admit for nausea, vomiting and weakness from medical oncology clinic. Plan 1. Pt to get XRT to cerebellar mass. 2. Per neurosurgery, mass is resectable; however we will try XRT first. 3. Pt refused CT thorax with IV contrast. She states she had this the end of October in [place]. Will attempt to get records. 4. Supportive care. Attending Statement The exam, history, and the medical decision-making described in the above note were completed with the assistance of the mid-level provider. I reviewed and agree with the findings presented. I attest that I had a [id number] encounter with the patient on the same day, and personally performed and documented my assessment and findings in the medical record. clinically better. more awake and alert. seen by NS and [facility]Ad Onc. plan for stereotactic radiation treatments to the brain lesion. refused restaging imaging for chest. can be d/c'd home with outpateint follow-up if okay by other specialties. Problem Qualifiers (1) Malignant neoplasm of breast metastatic to brain: Qualified Code: C50.912 - Malignant neoplasm of breast metastatic to brain, left Chary Wattsmonika AYOUB Dec 06, 2016 08:35 Shoaib Hillman MD Dec 07, 2016 00:00
[2016-12-06] MEDS: PREGABALIN 25 MG CAP PO SCH ×2 (08:41→20:37)
[2016-12-06] MEDS: MORPHINE SULFATE 15 MG CONTROLLED RELEASE TAB PO SCH ×2 (08:41→20:37)
--- NOTE | 2016-12-06 09:28 | RADRPT ---
EXAM DATE/TIME: 12/06/2016 08:44 [facility] COMPARISON: No previous studies available for comparison. INDICATIONS : Evalaute for power port Port placed 01/2016 MEDICAL HISTORY : Carcinoma, breast. Metastatic disease. SURGICAL HISTORY : None. ENCOUNTER: Initial ACUITY: 3 days PAIN SCORE: 0/10 LOCATION: chest FINDINGS: Portable AP view of the chest demonstrates a normal-sized cardiac silhouette. Right chest wall Infuse -a-Port is present and has been placed through subclavian approach the distal tip is in the screw xiomy a cava. It has the initial CT on the [id number] indicating that it is a power port. Lungs are unde rinflated but no effusion, consolidation, or pneumothorax is seen. There is atelectasis at the lung b ases. No acute osseous abnormality is identified. CONCLUSION: The right chest wall [id number] is CT approved power port and distal tip is in the SVC. Otherwise, no acute finding is identified. John Velasquez MD on December 06, 2016 at 9:24 Board Certified Radiologist. This report was verified electronically.
--- NOTE | 2016-12-06 10:59 | HHI.PR ---
Subjective History of Present Illness FEELS MUCH BETTER No more N/V able to eat now appetite is ok headache is in control ch back pain /meds are helping NO fever or chills No CP or SOB No cough or sputum offers no other c/o Vitals/Results Intake & Output 12/05/16 12/05/16 12/06/16 15:00 23:00 07:00 Intake Total 1000 ml 794 ml 480 ml Output Total 100 ml 625 ml 300 ml Balance 900 ml 169 ml 180 ml Intake Oral 0 ml 480 ml 480 ml IV Total 1000 ml 314 ml Output Urine Total 100 ml 625 ml 300 ml # Bowel Movements 0 0 Vital Signs Vital Signs Date Time Temp Pulse Resp B/P Pulse Ox O2 Delivery O2 Flow Rate FiO2 12/06/16 08:00 97.7 101 18 135/87 95 12/06/16 04:00 98.5 110 18 112/77 95 12/06/16 00:00 97.2 104 18 137/89 94 12/05/16 20:00 98.1 106 18 121/93 95 12/05/16 16:00 98.4 95 16 113/87 97 12/05/16 12:00 96.6 90 16 148/89 99 CBC/BMP: 12/06/16 0545 12/06/16 0545 Lab Results Laboratory Tests Test 12/05/16 12/06/16 15:30 05:45 Urine Color COLORLESS Urine Turbidity CLEAR Urine pH 7.0 Urine Specific [place] 1.020 Urine Protein NEG mg/dL Urine Glucose (UA) NEG mg/dL Urine Ketones 10 mg/dL Urine Occult Blood NEG Urine Nitrite NEG Urine Bilirubin NEG Urine Urobilinogen LESS THAN 2.0 MG/DL Urine Leukocyte Esterase NEG Urine RBC 1 /hpf Urine WBC 11 /hpf Microscopic Urinalysis Comment CULTURE INDICATED White Blood Count 3.9 TH/MM3 Red Blood Count 3.56 MIL/MM3 Hemoglobin 10.9 GM/DL Hematocrit 32.6 % Mean Corpuscular Volume 91.6 FL Mean Corpuscular Hemoglobin 30.7 PG Mean Corpuscular Hemoglobin 33.5 % Concent Red Cell Distribution Width 12.6 % Platelet Count 157 TH/MM3 Mean Platelet Volume 7.4 FL Neutrophils (%) (Auto) 89.0 % Lymphocytes (%) (Auto) 8.5 % Monocytes (%) (Auto) 2.4 % Eosinophils (%) (Auto) 0.0 % Basophils (%) (Auto) 0.1 % Neutrophils # (Auto) 3.5 TH/MM3 Lymphocytes # (Auto) 0.3 TH/MM3 Monocytes # (Auto) 0.1 TH/MM3 Eosinophils # (Auto) 0.0 TH/MM3 Basophils # (Auto) 0.0 TH/MM3 CBC Comment DIFF FINAL Differential Comment Prothrombin Time 11.6 SEC Prothromb Time International 1.0 RATIO Ratio Sodium Level 136 MEQ/L Potassium Level 3.8 MEQ/L Chloride Level 101 MEQ/L Carbon Dioxide Level 25.5 MEQ/L Anion Gap 10 MEQ/L Blood Urea Nitrogen 14 MG/DL Creatinine 0.48 MG/DL Estimat Glomerular Filtration 131 ML/MIN Rate Random Glucose 114 MG/DL Calcium Level 8.8 MG/DL Total Bilirubin 0.5 MG/DL Aspartate Amino Transf 9 U/L (AST/SGOT) Alanine Aminotransferase 15 U/L (ALT/SGPT) Alkaline Phosphatase 70 U/L Total Protein 7.2 GM/DL Albumin 3.4 GM/DL Microbiology Microbiology 12/05/16 Urine Culture, Received Pending Physical Exam General General Appearance: No Acute Distress, Comfortable Eyes Eye Exam: Pupils Equal, Sclera White, Extraocular Movement Intact Ears & Nose Ears & Nose Exam: Nasal Mucosa [place] Throat Throat Exam: Oral Mucosa [place] & Moist Neck Neck Exam: Neck Supple, Trachea Midline Pulmonary Resp Exam: Clear Bilaterally, Breath Sounds Equal Cardiology CV Exam: Regular, Normal Sinus Rhythm Gastrointestinal/Abdomen GI Exam: Soft, Non-Tender, Bowel Sounds Present Integumentary Skin Exam: Warm, Dry Extremeties Extremities Exam: No Edema, Pedal Pulses Palpable Neurologic Neuro Exam: Alert, Awake, Oriented, Speech Clear, Moving All Extremities Psychiatric Psych Exam: Appropriate Responses Assessment/Plan Assessment/Plan ASSESSMENT Cerebellar mass vasogenic edema /mass effect & developing hydrocephalus Weakness, nausea and vomiting d/t above Metastatic breast cancer with metastasis to liver , bone, and now brain. Chronic back pain due to known spinal mets, on narcotics. Chronic constipation. Hypokalemia PLAN . Pain nausea medications prn . Off IV fluid. . IV decadron . s/p 1 dose Mannitol . Regular diet,. . Analgesics.IV dilaudid/po morphine & oxycodone prn . Protonix. . Antiemetics. . NSx f/u , possible surgery in near future . Oncology f/u . CXR no acute findings . SCD for DVT prophylaxis. . home medications. . d/w PT in detail . will f/u Mehnaz Sellers MD Dec 06, 2016 10:59
[2016-12-06 12:00] VITALS: BP 108/78; PULSE 111; RESP 18; TEMP 97; O2SAT 98
[2016-12-06] MEDS ORDERED: DEXA4TAB PO (14:21)
[2016-12-06] MEDS ORDERED: PROT40TA PO (14:22)
--- NOTE | 2016-12-06 14:32 | HHI.NSPN ---
History Chief Complaint: none Interval History 61 yr old w new 2.2 cm left cerebellar mass, has responded well to mannitol and decadron. She is likely to respond well to radiosurgery when the hydrocephalus has improved. A decadron taper of 6 mg qid for 2 days then 4 mg qid for 2 days then 4 mg bid until the radiosurgery. The dose will then be tapered based on symptoms. She has no headache, no dysmetria and no ataxia this am. Review of Systems General: Negative for: fever, chills, insomnia Respiratory: Negative for: shortness of breath, cough, sputum Cardiovascular: Negative for: chest pain, palpitations, orthopnea Gastrointestinal: Negative for: nausea, vomitting, diarrhea, constipation Genitourinary: Negative for: urinary burning, urinary frequency, urinary urgency Exam Results Vital Signs Date Time Temp Pulse Resp B/P Pulse Ox O2 Delivery O2 Flow Rate FiO2 12/06/16 12:00 97.0 111 18 108/78 98 Intake and Output 12/05/16 12/05/16 12/06/16 08:00 16:00 00:00 Intake Total 1240 ml 0 ml 794 ml Output Total 300 ml 425 ml Balance 1240 ml -300 ml 369 ml Physical Examination Alert, smiling, EOMI, face symmetric, Gait stable in tandem, uses no aids, Medical Decision Making Impression and Plan Improved neurologically, may be transitioned to oral decadron on a taper. The prescription was given to the patient and a follow up was requested. Total Minutes: 10 Baltazar Paris Dec 06, 2016 14:32
[2016-12-06 20:00] VITALS: BP 123/71; PULSE 90; RESP 18; TEMP 98; O2SAT 96
[2016-12-07] VITALS: BP 111/88; PULSE 105; RESP 18; TEMP 98.3; O2SAT 97
[2016-12-07] MEDS: ONDANSETRON HCL 4 MG/2 ML VIAL IV PUSH PRN ×2 (00:12→06:07)
[2016-12-07] MEDS: DEXAMETHASONE SOD PHOS 20 MG/5 ML VIAL IV PUSH SCH ×2 (00:14→06:07)
[2016-12-07 04:00] VITALS: BP 108/68; PULSE 91; RESP 18; TEMP 98.1; O2SAT 94
[2016-12-07 07:17] LABS: AUTOMATED NEUTROPHIL # 4.9 TH/MM3 (1.8-7.7); BASOPHIL % 0.3 % (0.0-2.0); HEMATOCRIT 34.5 % (35.0-46.0); HEMO FLAGS DIFF FINAL; LYMPHOCYTE # 0.5 TH/MM3 (1.0-4.8); MEAN CELL VOLUME 92.1 FL (80.0-100.0); MEAN CORPUSCULAR HEMOGLOBIN 30.3 PG (27.0-34.0); MEAN CORPUSCULAR HGB CONC 32.8 % (32.0-36.0); MONO % 3.9 % (0.0-8.0); NEUT % 86.8 % (16.0-70.0); PLATELET COUNT 181 TH/MM3 (150-450); RED BLOOD COUNT 3.74 MIL/MM3 (4.00-5.30); WHITE BLOOD COUNT 5.7 TH/MM3 (4.0-11.0)
[2016-12-07 07:30] VITALS: BP 117/82; PULSE 106; RESP 20; TEMP 98.2; O2SAT 98
[2016-12-07 07:55] LABS: BICARBONATE 26.7 MEQ/L (21.0-32.0); POTASSIUM 3.8 MEQ/L (3.5-5.1)
[2016-12-07] MEDS: PREGABALIN 25 MG CAP PO SCH (09:21)
[2016-12-07] MEDS: MORPHINE SULFATE 15 MG CONTROLLED RELEASE TAB PO SCH (09:22)
[2016-12-07] MEDS ORDERED: PANTOPRAZOLE SOD 20 MG DELAYED RELEASE TAB PO SCH (09:45)
[2016-12-07] MEDS ORDERED: CEFUROXIME AXETIL 250 MG TAB PO SCH (10:00)
[2016-12-07] MEDS ORDERED: CEFT250T8 PO (10:04)
--- NOTE | 2016-12-07 10:04 | HHI.DCPOC ---
Discharge Care Plan Diagnosis: (1) Malignant neoplasm of breast metastatic to brain (2) Obstructive hydrocephalus Your Health Problems Are: Anxiety Difficulty with ADL Goals to Promote Your Health * To prevent worsening of your condition and complications * To maintain your health at the optimal level Directions to Meet Your Goals Take your medications as prescribed Follow your dietary instruction Follow activity as directed Keep your appointments as scheduled Take your immunizations and boosters as scheduled If your symptoms worsen call your PCP, if no PCP go to Urgent Care Center or Emergency Room Smoking is Dangerous to Your Health. Avoid second hand smoke Call the 24-hour hour crisis hotline for domestic abuse at Loretta Upton Dec 07, 2016 10:04
--- NOTE | 2016-12-07 10:10 | HHI.PR ---
Subjective Subjective Remarks minimal dizziness no n/v ambulating in hallway no fever no cp no sob slept better with Restoril no headache doesn't want home health, will help at home wants something to move bowels Review of Systems Constitutional Constitutional Remarks 12 point ROS completed, neg. except as noted above Vitals/Results Intake & Output 12/06/16 12/06/16 12/07/16 15:00 23:00 07:00 Intake Total 600 ml 480 ml 240 ml Output Total 400 ml 450 ml Balance 200 ml 30 ml 240 ml Intake Oral 600 ml 480 ml 240 ml Output Urine Total 400 ml 450 ml # Voids 1 # Bowel Movements 0 0 0 Vital Signs Vital Signs Date Time Temp Pulse Resp B/P Pulse Ox O2 Delivery O2 Flow Rate FiO2 12/07/16 07:30 98.2 106 20 117/82 98 12/07/16 04:00 98.1 91 18 108/68 94 12/07/16 00:00 98.3 105 18 111/88 97 12/06/16 20:00 98.0 90 18 123/71 96 12/06/16 12:00 97.0 111 18 108/78 98 CBC/BMP: 12/07/16 0600 12/07/16 0600 Lab Results Laboratory Tests Test 12/07/16 06:00 White Blood Count 5.7 TH/MM3 Red Blood Count 3.74 MIL/MM3 Hemoglobin 11.3 GM/DL Hematocrit 34.5 % Mean Corpuscular Volume 92.1 FL Mean Corpuscular Hemoglobin 30.3 PG Mean Corpuscular Hemoglobin 32.8 % Concent Red Cell Distribution Width 13.0 % Platelet Count 181 TH/MM3 Mean Platelet Volume 7.8 FL Neutrophils (%) (Auto) 86.8 % Lymphocytes (%) (Auto) 9.0 % Monocytes (%) (Auto) 3.9 % Eosinophils (%) (Auto) 0.0 % Basophils (%) (Auto) 0.3 % Neutrophils # (Auto) 4.9 TH/MM3 Lymphocytes # (Auto) 0.5 TH/MM3 Monocytes # (Auto) 0.2 TH/MM3 Eosinophils # (Auto) 0.0 TH/MM3 Basophils # (Auto) 0.0 TH/MM3 CBC Comment DIFF FINAL Differential Comment Sodium Level 140 MEQ/L Potassium Level 3.8 MEQ/L Chloride Level 105 MEQ/L Carbon Dioxide Level 26.7 MEQ/L Anion Gap 8 MEQ/L Blood Urea Nitrogen 20 MG/DL Creatinine 0.59 MG/DL Estimat Glomerular Filtration 103 ML/MIN Rate Random Glucose 113 MG/DL Calcium Level 9.0 MG/DL Physical Exam General General Appearance: Well Developed, No Acute Distress, Comfortable Eyes Eye Exam: Pupils Equal, Sclera White, Extraocular Movement Intact Ears & Nose Ears & Nose Exam: Nasal Mucosa [place] Throat Throat Exam: Oral Mucosa [place] & Moist Neck Neck Exam: Neck Supple, Trachea Midline Pulmonary Resp Exam: Clear Bilaterally, Breath Sounds Equal Cardiology CV Exam: Regular, Normal Sinus Rhythm, Good Perfusion Gastrointestinal/Abdomen GI Exam: Soft, Non-Tender, Bowel Sounds Present, No Hepatosplenomegaly Musculoskeletal MS Exam: Joints Intact Integumentary Skin Exam: Warm, Dry Extremeties Extremities Exam: No Edema, Pedal Pulses Palpable Neurologic Neuro Exam: Alert, Awake, Oriented, Speech Clear, Moving All Extremities, No Focal Deficits Psychiatric Psych Exam: Appropriate Responses VTE Prophylaxis VTE Prophylaxis Device: SCDs PUD Prophylasis PUD Prophylaxis: Protonix Assessment/Plan Assessment/Plan ASSESSMENT Cerebellar mass vasogenic edema /mass effect & developing hydrocephalus Weakness, nausea and vomiting d/t above Metastatic breast cancer with metastasis to liver , bone, and now brain. Chronic back pain due to known spinal mets, on narcotics. Chronic constipation. Hypokalemia PLAN . Pain nausea medications prn . IV decadron . s/p 1 dose Mannitol . Regular diet,. . Analgesics.IV dilaudid/po morphine & oxycodone prn . Protonix. . Antiemetics. . NSx f/u , possible surgery in near future, ok for discharge. Provided taper dose of Decadron until radiosurgery . Oncology f/u -D/W Nori Daley, ms for discharge on Decadron. . Pt. to f/u with Dr. Arreola . SCD for DVT prophylaxis. . UA/UC back + Ecoli, start Ceftin 250 mg po bid x 5 days . Offered HHC and PT, declined . Give Colace now, states she will buy OTC. . Stable for discharge, no more dizziness, no N/V . F/U Dr. Arreola, Dr. Cordero, Dr. Paris . Diet-regular . Activity-as tolerated, no driving D/W RN D/W Dr. Sellers D/JANY Burrell D/C CM D/W pt, This patient was seen by myself and Dr. Sellers, this note is written on his behalf. Loretta Upton Dec 07, 2016 10:10
--- NOTE | 2016-12-07 10:14 | HHI.DS ---
Discharge Summary Admission Date Dec 04, 2016 at 16:08 Discharge Date: Dec 07, 2016 Admitting Diagnosis (1) Malignant neoplasm of breast metastatic to brain (2) Obstructive hydrocephalus (3) Nausea & vomiting (4) Dizziness (5) Chronic constipation (6) Hypokalemia CBC/BMP: 12/07/16 0600 12/07/16 0600 Significant Findings Laboratory Tests Test 12/05/16 12/05/16 12/06/16 12/07/16 04:25 15:30 05:45 06:00 Red Blood Count 3.41 MIL/MM3 3.56 MIL/MM3 3.74 MIL/MM3 (4.00-5.30) (4.00-5.30) (4.00-5.30) Hemoglobin 10.3 GM/DL 10.9 GM/DL 11.3 GM/DL (11.6-15.3) (11.6-15.3) (11.6-15.3) Hematocrit 31.5 % 32.6 % 34.5 % (35.0-46.0) (35.0-46.0) (35.0-46.0) Platelet Count 143 TH/MM3 (150-450) Potassium Level 3.4 MEQ/L (3.5-5.1) Creatinine 0.49 MG/DL 0.48 MG/DL (0.50-1.00) (0.50-1.00) Calcium Level 8.4 MG/DL (8.5-10.1) Urine Ketones 10 mg/dL (NEG) Urine WBC 11 /hpf (0-5) White Blood Count 3.9 TH/MM3 (4.0-11.0) Neutrophils (%) (Auto) 89.0 % 86.8 % (16.0-70.0) (16.0-70.0) Lymphocytes (%) (Auto) 8.5 % (9.0-44.0) Lymphocytes # (Auto) 0.3 TH/MM3 0.5 TH/MM3 (1.0-4.8) (1.0-4.8) Random Glucose 114 MG/DL 113 MG/DL (74-106) (74-106) Aspartate Amino Transf 9 U/L (15-37) (AST/SGOT) Blood Urea Nitrogen 20 MG/DL (7-18) Imaging Last Impressions Chest X-Ray 12/06/16 0000 Signed Impressions: Service Date/Time: Tuesday, December 06, 2016 08:44 - CONCLUSION: The right chest wall [id number] is CT approved power port and distal tip is in the SVC. Otherwise, no acute finding is identified. John Velasquez MD Head CT 12/05/16 0000 Signed Impressions: Service Date/Time: Monday, December 05, 2016 10:34 - CONCLUSION: 1. Edema in the left cerebellum causing obstruction of the of fourth ventricle and findings suggestive of obstructive hydrocephalus. 2. Additionally, there is upward transtentorial herniation as well as downward cerebellar herniation of the tonsils through the foramen magnum. John Velasquez MD Brain MRI 12/05/16 0000 Signed Impressions: Service Date/Time: Monday, December 05, 2016 07:37 - CONCLUSION: 1. There is a solitary enhancing left cerebellar mass measuring up to 2.2 cm. There is marked surrounding vasogenic edema and local mass effect causing obstruction of the fourth ventricle. This results in ventriculomegaly with transependymal fluid migration. Although primary brain lesions are included in the differential diagnosis, given the history provided, metastatic disease is the favored etiology. 2. Additionally, the local mass effect from the edema surrounding the left cerebellar mass is causing upward transtentorial herniation and downward herniation of the cerebellar tonsils through the foramen magnum. John Velasquez MD Abdomen/Pelvis CT 12/04/16 0000 Signed Impressions: Service Date/Time: Sunday, December 04, 2016 22:56 - CONCLUSION: Heterogeneous mass in the liver, left adrenal masses that do calcifications, and multiple osseous lesions in the lumbar spine and pelvis congruous with history of known metastatic breast cancer. Yogesh Alberto MD Hospital Course This is a 60-year-old unfortunate female with a known history of metastatic HER-2/mani overexpressing metastatic breast cancer that was originally diagnosed in 2013. She was found to have a liver lesion, extensive spinal lesions and a mass in the adrenal gland. She was treated with palliative chemotherapy, initially received Taxol and Herceptin, she tolerated that regimen. However, followup staging evaluation revealed progression of the disease. She was switched to Xeloda and Herceptin. Her disease progressed on that regimen and she was switched to Navelbine and Herceptin. Most recently she was receiving Herceptin along with immune therapy. She apparently tolerated that regimen well and her disease responded to that regimen to the point that her primary oncologist decided to hold the chemotherapy and treat her with immune therapy alone. She apparently was not showing signs of disease progression. She is developing recurrent nausea and vomiting which has especially gotten worse in the last week or so. She had several episodes of vomiting last Wednesday that finally resolved and she got sick again yesterday. Last night she vomited multiple times which was worsened with eating. She denies hematemesis, denies any significant abdominal pain. She suffers from chronic constipation. She has chronic pain and takes high-dose narcotics at home to keep the pain in control. She went to see Dr. Cordero and she was found to be clinically dehydrated, she was given IV fluid, labs were drawn. Her labs are okay but she remained quite weak and nauseous. Dr. Cordero recommended hospitalization for further evaluation as she was concerned about possible disease progression in the liver or metastasis to brain. The patient also reported having headaches. She has mild photophobia and phonophobia. She denied fever or chills. Denied night sweats. She apparently had lost weight earlier on but currently she is maintaining her weight. She denies melena or bright red blood per rectum. Pt. was admitted for further evaluation and treatment. Cerebellar mass vasogenic edema /mass effect & developing hydrocephalus Weakness, nausea and vomiting d/t above Metastatic breast cancer with metastasis to liver , bone, and now brain. Chronic back pain due to known spinal mets, on narcotics. Chronic constipation. Hypokalemia During course of the hospitalization, the following took place: Pt. put on IVF, electrolytes replaced. Put on antiemetics, IV narcotics Imaging studies done, showed MRI of the brain showed a solitary enhancing left cerebellar mass measuring up to 2.2 cm with edema causing upward transtentorial herniation and downward herniation of the cerebellar tonsils through the foramen magnum. Likely metastatic in origin. Oncology also followed pt. Neurosurgery Dr. Paris consulted, likely to respond well to radiosurgery when the hydrocephalus has improved. Pt. started on Decadron Tapering dose provided. She is to continue until radiosurgery. Pt. is also to f/u Dr. Arreola UA positive for UTI, Ecoli, started on Ceftin was given PPI for GI prophylaxis Put on IVF until PO intake improved Started on Colace for bowel regimen Did receive one dose of Mannitol Renal function monitored Electrolytes replaced Offered [facility] with PT, declined. Was ambulating in hallway without any deficits. Pt's symptoms improved, cleared for discharge by consultants Instructed to: . F/U Dr. Arreola, Dr. Cordero, Dr. Paris . Diet-regular . Activity-as tolerated, no driving Pt Condition on Discharge: Stable Discharge Disposition: Discharge Home Discharge Instructions DIET: Follow Instructions for: Heart Healthy Diet Speech Therapy-Diet Recommends: Regular Activities you can perform: Weight Bearing as Ngozi Other Activity Instructions: no driving Follow up Referrals: Appointment for Follow Up with DR. THAO ARREOLA Neurosurgery - 3 Weeks @ [facility] New Medications: Dexamethasone (Dexamethasone) 4 Mg Tab 6 MG PO QID Take 1 1/2 tab 4 times per day for 2 days then 1 tab 4 times per day for 2 days then 1 tab twice per day for brain swelling on taper #120 Ref 0 TAB Pantoprazole (Protonix) 40 Mg Tab 40 MG PO DAILY PRN while on decadron #30 Ref 0 TAB Cefuroxime (Ceftin) 250 Mg Tab 250 MG PO Q12HR Infection #14 Ref 0 TAB Continued Medications: Morphine ER (Morphine ER) 15 Mg Tab 15 MG PO BID Pain Management Ref 0 TAB Oxycodone (Oxycodone) 10 Mg Tab 10 MG PO Q4H PRN PAIN Ref 0 TAB Pregabalin (Lyrica) 25 Mg Cap 25 MG PO BID #60 Ref 0 CAP Loretta Upton Dec 07, 2016 10:14
[2016-12-07] MEDS ORDERED: REST15CA PO (10:51)
--- NOTE | 2016-12-07 10:59 | PD.ONC.PN ---
Subjective Subjective Remarks Afebrile overnight. Patient very eager to go home. She feels much improved today. Objective Data Date Time Temp Pulse Resp B/P Pulse Ox O2 Delivery O2 Flow Rate FiO2 12/07/16 07:30 98.2 106 20 117/82 98 12/07/16 04:00 98.1 91 18 108/68 94 12/07/16 00:00 98.3 105 18 111/88 97 12/06/16 20:00 98.0 90 18 123/71 96 12/06/16 12:00 97.0 111 18 108/78 98 Result Diagram: 12/07/16 0600 12/07/16 0600 Laboratory Results Laboratory Tests Test 12/07/16 06:00 White Blood Count 5.7 TH/MM3 Red Blood Count 3.74 MIL/MM3 Hemoglobin 11.3 GM/DL Hematocrit 34.5 % Mean Corpuscular Volume 92.1 FL Mean Corpuscular Hemoglobin 30.3 PG Mean Corpuscular Hemoglobin 32.8 % Concent Red Cell Distribution Width 13.0 % Platelet Count 181 TH/MM3 Mean Platelet Volume 7.8 FL Neutrophils (%) (Auto) 86.8 % Lymphocytes (%) (Auto) 9.0 % Monocytes (%) (Auto) 3.9 % Eosinophils (%) (Auto) 0.0 % Basophils (%) (Auto) 0.3 % Neutrophils # (Auto) 4.9 TH/MM3 Lymphocytes # (Auto) 0.5 TH/MM3 Monocytes # (Auto) 0.2 TH/MM3 Eosinophils # (Auto) 0.0 TH/MM3 Basophils # (Auto) 0.0 TH/MM3 CBC Comment DIFF FINAL Differential Comment Sodium Level 140 MEQ/L Potassium Level 3.8 MEQ/L Chloride Level 105 MEQ/L Carbon Dioxide Level 26.7 MEQ/L Anion Gap 8 MEQ/L Blood Urea Nitrogen 20 MG/DL Creatinine 0.59 MG/DL Estimat Glomerular Filtration 103 ML/MIN Rate Random Glucose 113 MG/DL Calcium Level 9.0 MG/DL Culture Results Microbiology Date/Time Procedure Status Source Growth 12/05/16 15:30 Urine Culture - Final Complete Urine Clean Catch Escherichia Coli Administered Medications Medications (Trade) Dose Ordered Sig/Andrew Route PRN Reason Start Time Stop Time Status Last Admin Dose Admin Morphine Sulfate (Oramorph Sr) 15 mg BID PO 12/04/16 21:00 12/07/16 09:22 Oxycodone HCl (Roxicodone) 10 mg Q4H PRN PO PAIN 12/04/16 17:30 12/05/16 04:29 Pregabalin (Lyrica) 25 mg BID PO 12/04/16 21:00 12/07/16 09:21 Acetaminophen (Tylenol 325 Mg/ 10 ml Liq) 300 mg Q6H PRN PO HEADACHE 12/04/16 21:00 12/05/16 03:39 Ondansetron HCl (Zofran Inj) 4 mg Q6HR PRN IV PUSH n/v 12/04/16 23:30 12/07/16 06:07 Temazepam (Restoril) 15 mg HS PRN PO sleep 12/04/16 23:30 12/07/16 00:14 Hydromorphone HCl (Dilaudid Pf Inj) 1 mg Q4H PRN IV PAIN > 5 12/05/16 09:30 12/06/16 04:20 Pantoprazole Sodium (Protonix) 20 mg DAILY PO 12/07/16 09:45 12/07/16 10:38 Docusate Sodium (Colace) 100 mg BID PO 12/07/16 11:00 12/07/16 10:38 Objective Remarks GENERAL: Middle aged female, sitting up in bed in [facility]. SKIN: Warm and dry. HEAD: Normocephalic. EYES: No injection or drainage. NECK: Supple, trachea midline. CARDIOVASCULAR: Regular rate and rhythm RESPIRATORY: Breath sounds equal bilaterally. No accessory muscle use. GASTROINTESTINAL: Abdomen soft, non-tender, nondistended. EXTREMITIES: No cyanosis NEUROLOGICAL: awake and alert, normal speech. moving all extremities. independently ambulatory. Assessment/Plan Problem List: (1) Malignant neoplasm of breast metastatic to brain Status: Acute Plan: 12/07/16: spoke with Dr. shrestha, patient clear for discharge. they will plan simulation this or Wednesday. d/w patient -- MRI of the brain shows a solitary enhancing left cerebellar mass measuring up to 2.2 cm with edema causing upward transtentorial herniation and downward herniation of the cerebellar tonsils through the foramen magnum. -- Likely metastatic in origin. Hx/Workup: Mrs. Orrs breast cancer was originally diagnosed November 01, 2013. She had liver mass consistent with breast origin. The tumor was weakly ER positive HER-2/mani positive. She was most recently on chemotherapy in April 2016 with Taxotere, Herceptin, and Perjeta. CT scan of the abdomen and pelvis in June 2016 showed a significant improvement in hepatic metastatic disease and the bony metastatic disease was stable. She has recently returned to [place] for the winter. Her last chemotherapy regimen was November 03 when she received Herceptin and Perjeta alone. She began to feel unwell since stopping the Taxotere. She recently has been complaining of dizziness and unsteadiness over the last several weeks. (2) Obstructive hydrocephalus Status: Acute Plan: -- Neurosurgery following. -- Decadron 4mg PO q6 -- Neuro checks -- Headache much improved Assessment 61 y/o female who was a direct admit for nausea, vomiting and weakness from medical oncology clinic. Plan 1. clear for d/c 2. follow up wit Dr. Cordero Wednesday as scheduled 3. Protonix while on Decadron--was d/w patient Problem Qualifiers (1) Malignant neoplasm of breast metastatic to brain: Qualified Code: C50.912 - Malignant neoplasm of breast metastatic to brain, left Nori Daley Dec 07, 2016 10:59
[2016-12-07] MEDS ORDERED: DOCUSATE SODIUM 100 MG CAP PO SCH (11:00)
[2016-12-07] MEDS ORDERED: DEXAMETHASONE 4 MG TAB PO SCH (12:00)
--- NOTE | 2016-12-07 21:28 | EKG ---
Date Performed: 12/05/2016 Time Performed: 14:19:51 PTAGE: 61 years EKG: Sinus rhythm MODERATE VOLTAGE CRITERIA FOR LVH, CONSIDER NORMAL VARIANT BORDERLINE ECG NO PREVIOUS TRACING DOCTOR: Ronnie Valero Interpretating Date/Time 12/07/2016 21:27:23
--- NOTE | 2016-12-12 14:44 | RF ---
cc: SOPHIA PARIS MD,THAO SOLIS MD,MEIR Dueñas M.D. F o l l o w u p R e p o r t DATE OF SERVICE: 12/05/2016. AGE: 59 SEX: F Ms. Anton is a 61-year-old female. She has a history of breast cancer. She has history of prior radiation therapy to the spine. She presented with a change of mental status. Imaging demonstrates a 2.2 cm lesion in the cerebellar area with significant edema noted as well. She is on steroids. She is now alert and oriented and able to follow commands. She has been seen in the past by Dr. Cordero as she was here in the summer. She presented in 2012 with a normal MRI demonstrating bone metastases of the spine. She also has disease in the liver. She has been on multiple medications. Recently admitted due to neurocognitive change now fairly stable. Prior radiation therapy to her spine. PAST MEDICAL AND SURGICAL HISTORY: 1. Anemia. 2. Metastatic breast cancer ER positive, HER-2. 3. Radiation therapy to the spine. 4. Liver metastases. 5. Colonoscopy. SOCIAL HISTORY: She is . Her is present. She smoked, she quit. FAMILY HISTORY: Mother at 64 from cancer. Sister recently diagnosed with lung cancer. ALLERGIES: BONIVA. FOSAMAX. MEDICATIONS: 1. Oxycodone. 2. Gabapentin. 3. Mannitol. 4. Steroids. REVIEW OF SYSTEMS: Nausea. Decreased mental status, improved since inpatient medical management. Headache. Denies shortness of breath, chest pain. PHYSICAL EXAMINATION: GENERAL: A pleasant female comfort. Alert and oriented. EYES: Extraocular muscles intact. No scleral icterus. EXTREMITIES: No clubbing, cyanosis or edema. SKIN: Intact. NEUROLOGIC: Alert and oriented, able to follow two-step commands. intact. Moving all four extremities. RADIOGRAPHIC IMAGING DATA: MRI brain shows left cerebellar area with significant edema. Other disease noted on CT abdomen and pelvis. RECOMMENDATIONS: We discussed stereotactic radiosurgery. We discussed fractionated radiotherapy. We agree with Dr. Paris about the potential role of surgery pending response to steroids. This seems like a reasonable approach. We discussed low control with radiation likely greater than 8/10. We discussed 1 in 20 risk of edema where she would have similar symptoms as before which could be a significant impairment. Consider SRT as may be more tolerable than SRS, perhaps 27 Gy in three fractions. I will follow up with her as an outpatient in the next few days. I will follow her course inpatient. Thao Arreola MD Radiation Oncologist JUWAN/SHAYLA /10:11 PM /2:34 PM MARTINE
== END 2016-12-07 11:25 | disposition home or self-care (01) | DRG 54 ==
LOC: HOCA 16:08
PROVIDERS: ADMIT Specialist; ATTEND Specialist
DX: C79.31 Secondary malignant neoplasm of brain (principal); G93.6 Cerebral edema; G93.5 Compression of brain; G91.1 Obstructive hydrocephalus; C78.7 Secondary malignant neoplasm of liver and intrahepatic bile duct; C79.51 Secondary malignant neoplasm of bone; N39.0 Urinary tract infection, site not specified; E86.0 Dehydration; C79.72 Secondary malignant neoplasm of left adrenal gland; B96.20 Unspecified Escherichia coli [E. coli] as the cause of diseases classified elsewhere; C50.919 Malignant neoplasm of unspecified site of unspecified female breast; R11.2 Nausea with vomiting, unspecified; K59.09 Other constipation; G89.29 Other chronic pain; Z87.891 Personal history of nicotine dependence; M81.0 Age-related osteoporosis without current pathological fracture; Z85.3 Personal history of malignant neoplasm of breast; M54.9 Dorsalgia, unspecified; Z17.0 Estrogen receptor positive status [ER+]; E87.6 Hypokalemia; H53.149 Visual discomfort, unspecified
CPT/HCPCS: 36591; 70450; 70553; 71010; 74177; 80048; 80053; 81001; 82150; 83690; 85025; 85027; 85610; 87077; 87086; 87186; 93005; 96365; 96366; 96375; 99221; A9579; J1100; J1170; J1626; J1642; J2060; J2150; J2405; J7030; J7040; J7050; Q9963; Q9967

== ENCOUNTER 2017-11-29 14:16 | Inpatient (IN) | payer MEDICARE ==
[~2017-11-29] VITALS: Ht 152.4 cm; Wt 44.5 kg
[~2017-11-29 14:16] MED LIST: CEFT250T8 PO; DEXA4TAB PO; MORP1TAB24 PO; OXYC-395 PO; PREG25 PO; PROT40TA PO; REST15CA PO
[2017-11-29 14:18] VITALS: BP 93/50; PULSE 110; RESP 18; TEMP 97.7; O2SAT 97
[2017-11-29] MEDS ORDERED: GABA300C5 PO (14:52)
[2017-11-29] MEDS ORDERED: ZOFR4TAB PO (14:52)
[2017-11-29] MEDS ORDERED: SODIUM CHLORID 0.9% 500 ML INJ 500 ML IV ONE (15:00)
--- NOTE | 2017-11-29 15:03 | PD ---
HPI Chief Complaint: Abnormal Results Time Seen by Provider: 14:34 Travel History International Travel<30 days: No Contact w/Intl Traveler<30days: No Traveled to known affect area: No History of Present Illness HPI 62-year-old female that presents to the ED for eval of abnormal results. Per patient she was seen today by her oncologist who was concerned secondary to the kidney function. Apparently patient had a significant change in the kidney function. Patient unfortunately has a history of stage IV breast cancer has metastasized to the liver and other areas. Apparently physician was concerned about possible metastasis to the kidney causing the acute kidney failure. Patient last had chemotherapy last week and was supposed to have chemotherapy today but she did not get up because of the acute kidney failure. She denies any chest pain or shortness of breath. She states that she had a stent placed on her liver secondary to liver failure secondary to the mass. She's been doing fine otherwise. She states that for the past week she developed severe swelling to the lower legs for the past week. Patient has any pain but states having pain on the ankles. 2 out of 10. Denies any fevers chills or sweats. States that she's been able to urinate with no issues. Per family member she is not eating much but she is able to drink some fluids. She denies any diarrhea. Per patient she was sent here for evaluation of acute kidney injury and possible mass to the kidney causing the kidney injury. PFSH Past Medical History Cancer: Yes (breast mets liver and bone) Chemotherapy: Yes Radiation Therapy: Yes Social History Tobacco Use: No Substance Use: No Allergies-Medications (Allergen,Severity, Reaction): Coded Allergies: ibandronate sodium (Unverified Allergy, Severe, Twitching, 11/29/17) like electric shock per pt alendronate sodium (Unverified Allergy, Unknown, 11/29/17) Uncoded Allergies: bon (Allergy, Severe, Twitching, 12/04/16) states "electric shock" Reported Meds & Prescriptions Reported Meds & Active Scripts Active Restoril (Temazepam) 15 Mg Cap 15 Mg PO HS PRN Protonix (Pantoprazole Sodium) 40 Mg Tab 40 Mg PO DAILY PRN Dexamethasone 4 Mg Tab 6 Mg PO QID Take 1 1/2 tab 4 times per day for 2 days then 1 tab 4 times per day for 2 days then 1 tab twice per day Reported Gabapentin 300 Mg Cap 600 Mg PO BID Zofran (Ondansetron HCl) 4 Mg Tab 4 Mg PO Q8HR PRN Lyrica (Pregabalin) 25 Mg Cap 25 Mg PO BID Oxycodone (Oxycodone HCl) 10 Mg Tab 10 Mg PO Q4H PRN Morphine ER (Morphine Sulfate) 15 Mg Tab 15 Mg PO BID Review of Systems Except as stated in HPI: all other systems reviewed are Neg Physical Exam Narrative GENERAL: SKIN: Warm and dry. HEAD: Atraumatic. Normocephalic. EYES: Pupils equal and round. No scleral icterus. No injection or drainage. ENT: No nasal bleeding or discharge. Mucous membranes pink and moist. Tongue is midline. No uvula deviation. NECK: Trachea midline. No JVD. CARDIOVASCULAR: Regular rate and rhythm. No murmurs, S3, S4. RESPIRATORY: No accessory muscle use. Clear to auscultation. Breath sounds equal bilaterally. GASTROINTESTINAL: Abdomen soft, non-tender, nondistended. Hepatic and splenic margins not palpable. MUSCULOSKELETAL: Extremities without clubbing, cyanosis, or edema. No obvious deformities. Full range of motion of the upper and lower extremities bilaterally. Patient does have 2+ pitting edema in the lower extremities bilaterally. NEUROLOGICAL: Awake and alert. No obvious cranial nerve deficits. Motor grossly within normal limits. Five out of 5 muscle strength in the arms and legs. Normal speech. PSYCHIATRIC: Appropriate mood and affect; insight and judgment normal. Data Data Last Documented VS Vital Signs Date Time Temp Pulse Resp B/P (MAP) Pulse Ox O2 Delivery O2 Flow Rate FiO2 11/29/17 14:52 18 Room Air 11/29/17 14:18 97.7 110 93/50 (64) 97 Orders Orders Complete Blood Count With Diff (11/29/17 14:26) Comprehensive Metabolic Panel (11/29/17 14:26) Prothrombin Time / Inr (Pt) (11/29/17 14:26) Act Partial Throm Time (Ptt) (11/29/17 14:26) Urinalysis - C+S If Indicated (11/29/17 14:26) B-Type Natriuretic Peptide (11/29/17 14:26) Ct Abd/Pel W/O Iv Contrast (11/29/17 ) Us Leg Venous Doppler Bilat (11/29/17 ) Sodium Chlorid 0.9% 500 Ml Inj (Ns 500 M (11/29/17 15:00) Urine Culture (11/29/17 15:50) Ceftriaxone Inj (Rocephin Inj) (11/29/17 16:30) Type And Screen (11/29/17 16:20) Red Blood Cells (Rbc) (11/29/17 16:30) Admit Order (Ed Use Only) (11/29/17 16:33) Labs Laboratory Tests Test 11/29/17 15:03 11/29/17 15:50 White Blood Count 8.4 TH/MM3 Red Blood Count 2.40 MIL/MM3 Hemoglobin 7.9 GM/DL Hematocrit 24.3 % Mean Corpuscular Volume 101.3 FL Mean Corpuscular Hemoglobin 32.9 PG Mean Corpuscular Hemoglobin Concent 32.5 % Red Cell Distribution Width 18.4 % Platelet Count 180 TH/MM3 Mean Platelet Volume 7.6 FL CBC Comment AUTO DIFF Differential Total Cells Counted 100 Neutrophils % (Manual) 83 % Band Neutrophils % 13 % Lymphocytes % 2 % Monocytes % 2 % Neutrophils # (Manual) 8.1 TH/MM3 Differential Comment FINAL DIFF MANUAL Platelet Estimate NORMAL Platelet Morphology Comment NORMAL Keratocytes OCC Prothrombin Time 12.8 SEC Prothromb Time International Ratio 1.3 RATIO Activated Partial Thromboplast Time 51.3 SEC Blood Urea Nitrogen 65 MG/DL Creatinine 2.74 MG/DL Random Glucose 85 MG/DL Total Protein 7.2 GM/DL Albumin 2.1 GM/DL Calcium Level 8.7 MG/DL Alkaline Phosphatase 1492 U/L Aspartate Amino Transf (AST/SGOT) 322 U/L Alanine Aminotransferase (ALT/SGPT) 103 U/L Total Bilirubin 12.2 MG/DL Sodium Level 127 MEQ/L Potassium Level 4.8 MEQ/L Chloride Level 95 MEQ/L Carbon Dioxide Level 20.2 MEQ/L Anion Gap 12 MEQ/L Estimat Glomerular Filtration Rate 17 ML/MIN B-Type Natriuretic Peptide 30 PG/ML Urine Color DARK-BROWN Urine Turbidity CLOUDY Urine pH 5.5 Urine Specific [place] 1.018 Urine Protein 30 mg/dL Urine Glucose (UA) NEG mg/dL Urine Ketones TRACE mg/dL Urine Occult Blood SMALL Urine Nitrite NEG Urine Bilirubin LARGE Urine Urobilinogen GREATER THAN 12.0 MG/DL Urine Leukocyte Esterase LARGE Urine RBC 11 /hpf Urine WBC 111 /hpf Urine WBC Clumps MOD Urine Squamous Epithelial Cells 3 /hpf Urine Hyaline Casts 8 /lpf Urine Mucus FEW /lpf Microscopic Urinalysis Comment CULTURE INDICATED MDM Medical Decision Making Medical Screen Exam Complete: Yes Emergency Medical Condition: Yes Medical Record Reviewed: Yes Interpretation(s) CBC & BMP Diagram 11/29/17 15:03 Total Protein 7.2, Albumin 2.1 L, Calcium Level 8.7, Alkaline Phosphatase 1492 H , Aspartate Amino Transf (AST/SGOT) 322 H, Alanine Aminotransferase (ALT/SGPT) 103 H, Total Bilirubin 12.2 H Last Impressions Lower Extremity Ultrasound 11/29/17 0000 Signed Impressions: Service Date/Time: Wednesday, November 29, 2017 15:19 - CONCLUSION: 1. No DVT identified. 2. Edematous changes within both lower extremities. Omid Gupta MD Abdomen/Pelvis CT 11/29/17 0000 Signed Impressions: Service Date/Time: Wednesday, November 29, 2017 15:55 - CONCLUSION: 1. Findings indicate interval progression of metastatic disease when compared to the prior CT from approximately 1 year ago. The liver mass has significantly increased in size and there is a new retroperitoneal lymphadenopathy in the abdomen. There is new free fluid in the pelvis. 2. Innumerable small pulmonary nodules at the lung bases characteristic of metastatic disease. There are small associated bilateral pleural effusions. 3. Heterogeneous bones with osseous metastases metastatic disease. There are persistent sclerotic and lucent lesions, some of which have increased in size over the one year interval. John Velasquez MD UA shows UTI Differential Diagnosis Acute kidney injury versus kidney disease versus metastasis to the kidneys versus dehydration versus DVT Narrative Course 62-year-old female that presents to the ED for evaluation of lower leg swelling and possible kidney injury. Patient was properly examined and was found to have signs and symptoms which appear to consistent with kidney injury. I did review the patient's medical records and she had blood work done today that showed acute kidney disease. Likely acute kidney failure from possible dehydration. Oncologist was concerned for possible metastasis to the kidney causing obstruction as she is already had obstruction to her bile causing her acute liver failure in the past and had to have a stent placed. Because of this labs were ordered. Imaging was ordered. Patient will be admitted. Case was discussed with Dr. Cummins who agrees with plan. Case discussed with Dr. Worthington who agrees to admission. Unfortunately Dr. Cordero is not on-call today so a consult was placed by me to his service. Diagnosis Primary Impression: Acute kidney failure Qualified Codes: N17.9 - Acute kidney failure, unspecified Additional Impressions: Breast cancer metastasized to bone Qualified Codes: C50.919 - Malignant neoplasm of unspecified site of unspecified female breast; C79.51 - Secondary malignant neoplasm of bone Breast cancer metastasized to liver Qualified Codes: C50.919 - Malignant neoplasm of unspecified site of unspecified female breast; C78.7 - Secondary malignant neoplasm of liver and intrahepatic bile duct UTI (urinary tract infection) Qualified Codes: N30.01 - Acute cystitis with hematuria Anemia Qualified Codes: D64.9 - Anemia, unspecified Admitting Information Admitting Physician Requests: Tl Hernandez Nov 29, 2017 15:02
[2017-11-29 15:15] LABS: HEMATOCRIT 24.3 % (35.0-46.0); HEMOGLOBIN 7.9 GM/DL (11.6-15.3); MEAN CELL VOLUME 101.3 FL (80.0-100.0); MEAN CORPUSCULAR HEMOGLOBIN 32.9 PG (27.0-34.0); MEAN CORPUSCULAR HGB CONC 32.5 % (32.0-36.0); MEAN PLATELET VOLUME 7.6 FL (7.0-11.0); PLATELET COUNT 180 TH/MM3 (150-450); RED CELL DISTRIBUTION WIDTH 18.4 % (11.6-17.2); WHITE BLOOD COUNT 8.4 TH/MM3 (4.0-11.0)
[2017-11-29 15:24] LABS: INTERNATIONAL NORMALIZED RATIO 1.3 RATIO; PROTHROMBIN TIME - PATIENT 12.8 SEC (9.8-11.6)
[2017-11-29 15:55] LABS: ALKALINE PHOSPHATASE 1492 U/L (45-117); TOTAL BILIRUBIN ADULT 12.2 MG/DL (0.2-1.0); TOTAL PROTEIN 7.2 GM/DL (6.4-8.2)
[2017-11-29 15:56] LABS: ALBUMIN 2.1 GM/DL (3.4-5.0); ALT (GPT) 103 U/L (10-53); AST (GOT) 322 U/L (15-37); BICARBONATE 20.2 MEQ/L (21.0-32.0); BLOOD UREA NITROGEN 65 MG/DL (7-18); CALCIUM 8.7 MG/DL (8.5-10.1); CHLORIDE 95 MEQ/L (98-107); CREATININE 2.74 MG/DL (0.50-1.00); GLOMERULAR FILTRATION RATE 17 ML/MIN (>89); GLUCOSE,RANDOM 85 MG/DL (74-106); SODIUM (NA) 127 MEQ/L (136-145)
[2017-11-29 16:00] LABS: BANDS 13 % (0-6); LYMPHOCYTES 2 % (9-44); MONOCYTES 2 % (0-8); NEUTROPHIL # MANUAL DIFF 8.1 TH/MM3 (1.8-7.7); POLYS (SEG NEUTROPHILS) 83 % (16-70)
[2017-11-29 16:06] LABS: KERATOCYTES OCC (NORMAL)
[2017-11-29 16:10] LABS: BILIRUBIN, URINE LARGE (NEG); BLOOD, URINE SMALL (NEG); GLUCOSE,URINE NEG (NEG); HYALINE CAST, URINE 8 /lpf (RARE); KETONE, URINE TRACE mg/dL (NEG); MUCUS URINE FEW /lpf (OCC); NITRITE,URINE NEG (NEG); PH, URINE 5.5 (5.0-8.5); SQUAMOUS EPITHELIAL CELL URINE 3 /hpf (0-5); URINE LEUKOCYTE ESTERASE LARGE (NEG); WHITE BLOOD CELL CLUMPS MOD
[2017-11-29 16:11] LABS: URINE COLOR DARK-BROWN (YELLW/STRAW)
--- NOTE | 2017-11-29 16:23 | RADRPT ---
EXAM DATE/TIME: 11/29/2017 15:55 [facility] COMPARISON: CT SIMULATION, December 14, 2016, 13:49. CT ABDOMEN & PELVIS W CONTRAST, December 04, 2016, 22:56. INDICATIONS : Bad lab before chemo. ORAL CONTRAST: No oral contrast ingested. RADIATION DOSE: 5.64 CTDIvol (mGy) MEDICAL HISTORY : Carcinoma, breast. Mets to liver and bone SURGICAL HISTORY : None. ENCOUNTER: Initial ACUITY: 1 day PAIN SCALE: 5/10 LOCATION: Abdomen TECHNIQUE: Volumetric scanning of the abdomen and pelvis was performed. Using automated exposure control and ad justment of the mA and/or kV according to patient size, radiation dose was kept as low as reasonably achievable to obtain optimal diagnostic quality images. DICOM format image data is available electro nically for review and comparison. FINDINGS: LOWER LUNGS: There are innumerable small pulmonary nodules at both lung bases, new from the prior study. There are small bilateral pleural effusions. Consolidation is present at the medial right lung base. LIVER: There is a lobulated septated appearing low-density mass occupying nearly the complete right lobe of the liver and in total measuring approximately 11.5 x 14.4 cm. This mass previously measured up to 4. 4 cm. Portion of the mass contains high density material in the right posterior liver. There is pneum obilia in the left intrahepatic bile ducts. A metallic stent extends from the liver hilum into the se cond portion of the duodenum. There is abnormal soft tissue surrounding the bile duct stent. SPLEEN: No acute abnormality. PANCREAS: Pancreatic tail demonstrates no abnormality. There is abnormal soft tissue around the pancreatic head and origin of the SMA. KIDNEYS: Normal in size and shape. There is no mass, stone, or hydronephrosis. ADRENAL GLANDS: There is a left adrenal gland mass arising from the lateral limb that contains high density material and measures approximately 12 x 11 mm. This compares to 1.9 x 1.2 cm previously. The right adrenal gl and is normal. VASCULAR: There is moderate atherosclerotic disease. No aneurysm is present. BOWEL/MESENTERY: Stomach and small bowel demonstrate no acute finding. There are no signs of obstruction. No acute col on abnormality is identified. There is a small volume of free fluid in the pelvis. There is no free i ntraperitoneal air. ABDOMINAL WALL: There is mild diffuse subcutaneous edema. RETROPERITONEUM: There is abnormal soft tissue in the retroperitoneum of the upper abdomen near the left renal vessels and in the aortocaval location. What is presumed to be an abnormal lymph node in a left para-aortic location measures 2.0 x 1.3 cm. BLADDER: No wall thickening or mass. REPRODUCTIVE: Within normal limits. INGUINAL: There is no lymphadenopathy or hernia. MUSCULOSKELETAL: There are chronic compression deformities of L4, T12, and T10. There is heterogeneous density of the bones with sclerotic and lucent lesions. These appear larger than on the prior study. In particular t he left lucent lesion within the left sacrum. CONCLUSION: 1. Findings indicate interval progression of metastatic disease when compared to the prior CT from ap proximately 1 year ago. The liver mass has significantly increased in size and there is a new retrope ritoneal lymphadenopathy in the abdomen. There is new free fluid in the pelvis. 2. Innumerable small pulmonary nodules at the lung bases characteristic of metastatic disease. There are small associated bilateral pleural effusions. 3. Heterogeneous bones with osseous metastases metastatic disease. There are persistent sclerotic and lucent lesions, some of which have increased in size over the one year interval. John Velasquez MD on November 29, 2017 at 16:10 Board Certified Radiologist. This report was verified electronically.
--- NOTE | 2017-11-29 16:29 | RADRPT ---
EXAM DATE/TIME: 11/29/2017 15:19 [facility] COMPARISON: No previous studies available for comparison. INDICATIONS : Bilateral leg swelling. MEDICAL HISTORY : Breast cancer with mets to bone and liver. Chemo and radiation therapy. Anemia. SURGICAL HISTORY : Liver BX. Colonoscopy. ENCOUNTER: Initial ACUITY: 1 day PAIN SCORE: 3/10 LOCATION: Bilateral legs. TECHNIQUE: Venous ultrasound of the left and right leg was performed from the inguinal ligament to the proximal calf. Real-time, color Doppler and spectral tracing, compression and augmentation techniques were us ed. FINDINGS: RIGHT LEG: There is normal compressibility of the deep venous system from the inguinal region to the proximal ca lf. No echogenic clot is seen in the lumen of the common femoral, femoral, popliteal, and posterior tibial veins. There is a normal response of the venous system to proximal and distal augmentation an d respiration. LEFT LEG: There is normal compressibility of the deep venous system from the inguinal region to the proximal ca lf. No echogenic clot is seen in the lumen of the common femoral, femoral, popliteal, and posterior tibial veins. There is a normal response of the venous system to proximal and distal augmentation an d respiration. CONCLUSION: 1. No DVT identified. 2. Edematous changes within both lower extremities. Omid Gupta MD on November 29, 2017 at 16:24 Board Certified Radiologist. This report was verified electronically.
[2017-11-29] MEDS ORDERED: cefTRIAXone INJ 1,000 MG in SODIUM CHLORIDE 0.9% INJ 100 ML IV ONE (16:30)
--- NOTE | 2017-11-29 16:38 | HHI.HP ---
[facility]Staff Admission Diagnosis acute kidney injury, stage 4 breast cancer, UTI, liver disease Diagnoses: (1) Acute kidney failure Diagnosis: Principal (2) Transaminitis (3) Metastatic breast cancer Diagnosis: Principal (4) UTI (urinary tract infection) (5) Anemia Chief Complaint: Decreased renal function Travel History International Travel<30 Days: No Contact w/Intl Traveler <30 Da: No Traveled to Known Affected Are: No History of Present Illness Written by Zohra Owens, acting as scribe for Dr. Fuller] on 11/29/17 at 16: 38. 62-year-old female with past medical history significant for HER/ner over expressing metastatic breast cancer diagnosed in 2012, osteoporosis, peripheral neuropathy, and intractable nausea and vomiting. Patient is accompanied by who is currently at bedside and states that she presented to the emergency department as requested by her oncologist . is able to provide a history of patient's cancer, originally diagnosed in [place] back in 2012 treated initially with TDM1 however discontinued secondary to pneumonitis. Patient then traveled back here to [place] and establish care with Dr. Cordero. Reviewing EMR records patient was hospitalized in November of last year due to intractable nausea and vomiting. She was admitted to the hospital and cerebral mass with edema and hydronephrosis found. She was treated with IV Decadron and followed up with radiation oncology . Patient completed fractionated stereotactic radiotherapy for a left cerebellar lesion on 12/31/16. Plans were to repeat imaging in 6 months whether she was here in [place] or [place]. Patient had been traveling back and forth to [place] and [place] and in October of last year had increase in liver function tests. She was seen by gastroenterology while in [place] performed ERCP and localized biliary stricture was found, she underwent biliary stent placement of the common bile duct. Patient returned back to see Dr. Cordero in office on 11/23/17 who discussed liver compromise with patient as well as recommended gastroenterology referral. Patient was initiated on Herceptin on that visit and was due for second dose tomorrow. She however had labs done which showed decreased renal function and patient was instructed by Dr. Cordero to come to the hospital for further evaluation. Patient is seen and examined resting comfortably in stretcher with at bedside. and patient reports that over the past week they have noticed that patient's legs have increasingly become edematous. Patient has also noticed that for the past 3 days she has been having shortness of breath at rest as well as with activity. She denies any cough, fever, chills, nausea, vomiting, diarrhea. She has been urinating without any difficulties, denies hematuria, or constipation. Over the past several days patient is also been less mobile and has been this had to push her around in seat walker. Patient has also been experiencing loss of appetite, denies any nausea or vomiting. also mentions to me that he has noticed over the past several days the patient has been somewhat confused. Patient will make statements that don't make sense. Patient reports that she has felt pretty sleepy over the past several days and believes that this may be contributing to some of her confusion. She denies any recent change to her medications including pain medications. actually reports that patient has stopped taking her neuropathy medication altogether since she feels that this is not really effective and she doesn't really need it. tells me that patient will usually take morphine extended release 15 mg twice a day along with 10 mg of oxycodone twice a day, has been reports that patient will usually have pain control with this regimen. Review of Systems Constitutional: COMPLAINS OF: Change in appetite Ears, nose, mouth, throat: DENIES: Epistaxis Respiratory: COMPLAINS OF: Shortness of breath Cardiovascular: COMPLAINS OF: Lower Extremity Edema Gastrointestinal: COMPLAINS OF: Abdominal pain (with deep palpation), DENIES: Bloody stools, Constipation, Diarrhea, Nausea, Vomiting Hematologic/lymphatic: DENIES: Bruising Except as stated in HPI: all other systems reviewed are Neg Past Family Social History Past Medical History Progressive metastatic breast cancer Osteoporosis Peripheral neuropathy Intractable N/V Past Surgical History Port placement Colonoscopy Liver biopsy ERCP with common bile duct stent. Reported Medications Reported Meds & Active Scripts Active Restoril (Temazepam) 15 Mg Cap 15 Mg PO HS PRN Protonix (Pantoprazole Sodium) 40 Mg Tab 40 Mg PO DAILY PRN Dexamethasone 4 Mg Tab 6 Mg PO QID Take 1 1/2 tab 4 times per day for 2 days then 1 tab 4 times per day for 2 days then 1 tab twice per day Reported Gabapentin 300 Mg Cap 600 Mg PO BID Zofran (Ondansetron HCl) 4 Mg Tab 4 Mg PO Q8HR PRN Lyrica (Pregabalin) 25 Mg Cap 25 Mg PO BID Oxycodone (Oxycodone HCl) 10 Mg Tab 10 Mg PO Q4H PRN Morphine ER (Morphine Sulfate) 15 Mg Tab 15 Mg PO BID Allergies: Coded Allergies: ibandronate sodium (Unverified Allergy, Severe, Twitching, 11/29/17) like electric shock per pt alendronate sodium (Unverified Allergy, Unknown, 11/29/17) Uncoded Allergies: bon (Allergy, Severe, Twitching, 12/04/16) states "electric shock" Active Ordered Medications Current Medications Medications (Trade) Dose Ordered Sig/Andrew Route Start Time Stop Time Status Last Admin Ceftriaxone Sodium 1000 mg/ Sodium Chloride 100 ml @ 200 mls/hr ONCE ONCE IV 11/29/17 16:30 11/29/17 16:59 Family History Mother: Cancer Father: [place] Social History Tobacco: Use to smoke, quit 15 yrs ago. Alcohol: socially Illicit drug use: denies Physical Exam Vital Signs Vital Signs Date Time Temp Pulse Resp B/P (MAP) Pulse Ox O2 Delivery O2 Flow Rate FiO2 11/29/17 14:52 18 Room Air 11/29/17 14:18 97.7 110 18 93/50 (64) 97 Physical Exam GENERAL: This is a frail, jaundice, ashy female in no apparent distress. SKIN: Jaundice. Cool and dry. HEAD: Atraumatic. Normocephalic. No temporal or scalp tenderness. EYES: Pupils equal round and reactive. Extraocular motions intact. Sclerae are jaundice. ENT: Nose without bleeding, purulent drainage. Throat without erythema. Uvula midline. Airway patent. NECK: Trachea midline. No JVD. Supple, nontender, no meningeal signs. CARDIOVASCULAR: Sinus tachycardia without murmurs, gallops, or rubs. RESPIRATORY: Bilateral breath sounds diminished at bases. No wheezes, rales, or rhonchi. GASTROINTESTINAL: Abdomen soft, non-tender to light palpation, nondistended. No palpable masses. No guarding. MUSCULOSKELETAL: Bilateral lower extremities with +4 pitting edema. No joint tenderness, effusion, or edema noted. No calf tenderness. NEUROLOGICAL: Awake and alert oriented x3. Cranial nerves II through XII intact. Motor and sensory grossly within normal limits. 4/5 muscle strength in all muscle groups. Normal speech, no facial droop. Laboratory Laboratory Tests Test 11/29/17 15:03 11/29/17 15:50 White Blood Count 8.4 Red Blood Count 2.40 Hemoglobin 7.9 Hematocrit 24.3 Mean Corpuscular Volume 101.3 Mean Corpuscular Hemoglobin 32.9 Mean Corpuscular Hemoglobin Concent 32.5 Red Cell Distribution Width 18.4 Platelet Count 180 Mean Platelet Volume 7.6 CBC Comment AUTO DIFF Differential Total Cells Counted 100 Neutrophils % (Manual) 83 Band Neutrophils % 13 Lymphocytes % 2 Monocytes % 2 Neutrophils # (Manual) 8.1 Differential Comment FINAL DIFF MANUAL Platelet Estimate NORMAL Platelet Morphology Comment NORMAL Keratocytes OCC Prothrombin Time 12.8 Prothromb Time International Ratio 1.3 Activated Partial Thromboplast Time 51.3 Blood Urea Nitrogen 65 Creatinine 2.74 Random Glucose 85 Total Protein 7.2 Albumin 2.1 Calcium Level 8.7 Alkaline Phosphatase 1492 Aspartate Amino Transf (AST/SGOT) 322 Alanine Aminotransferase (ALT/SGPT) 103 Total Bilirubin 12.2 Sodium Level 127 Potassium Level 4.8 Chloride Level 95 Carbon Dioxide Level 20.2 Anion Gap 12 Estimat Glomerular Filtration Rate 17 B-Type Natriuretic Peptide 30 Urine Color DARK-BROWN Urine Turbidity CLOUDY Urine pH 5.5 Urine Specific [place] 1.018 Urine Protein 30 Urine Glucose (UA) NEG Urine Ketones TRACE Urine Occult Blood SMALL Urine Nitrite NEG Urine Bilirubin LARGE Urine Urobilinogen GREATER THAN 12.0 Urine Leukocyte Esterase LARGE Urine RBC 11 Urine WBC 111 Urine WBC Clumps MOD Urine Squamous Epithelial Cells 3 Urine Hyaline Casts 8 Urine Mucus FEW Microscopic Urinalysis Comment CULTURE INDICATED Date/Time Source Procedure Growth Status 11/29/17 15:50 Urine Clean Catch Urine Culture Pending Received Result Diagram: 11/29/17 1503 11/29/17 1503 Imaging Last Impressions Lower Extremity Ultrasound 11/29/17 0000 Signed Impressions: Service Date/Time: Wednesday, November 29, 2017 15:19 - CONCLUSION: 1. No DVT identified. 2. Edematous changes within both lower extremities. Omid Gupta MD Abdomen/Pelvis CT 11/29/17 0000 Signed Impressions: Service Date/Time: Wednesday, November 29, 2017 15:55 - CONCLUSION: 1. Findings indicate interval progression of metastatic disease when compared to the prior CT from approximately 1 year ago. The liver mass has significantly increased in size and there is a new retroperitoneal lymphadenopathy in the abdomen. There is new free fluid in the pelvis. 2. Innumerable small pulmonary nodules at the lung bases characteristic of metastatic disease. There are small associated bilateral pleural effusions. 3. Heterogeneous bones with osseous metastases metastatic disease. There are persistent sclerotic and lucent lesions, some of which have increased in size over the one year interval. John Velasquez MD [place]rinjeane VTE Risk Assessment Caprini VTE Risk Assessment: Mod/High Risk (score >= 2) VTE Pharm Contraindication: Caprini Risk Assessment Model Point Value = 1 Point Value = 2 Point Value = 3 Point Value = 5 Age 41-60 Minor surgery BMI > 25 kg/m2 Swollen legs Varicose veins or History of unexplained or recurrent spontaneous Oral contraceptives or hormone replacement Sepsis (< 1 month) Serious lung disease, including pneumonia (< 1 month) Abnormal pulmonary function Acute myocardial infarction Congestive heart failure (< 1 month) History of inflammatory bowel disease Medical patient at bed rest Age 61-74 Arthroscopic surgery Major open surgery (> 45 min) Laparoscopic surgery (> 45 min) Malignancy Confined to bed (> 72 hours) Immobilizing plaster cast Central venous access Age >= 75 History of VTE Family history of VTE Factor V Leiden Prothrombin [id number] Lupus anticoagulant Anticardiolipin antibodies Elevated serum homocysteine Heparin-induced thrombocytopenia Other congenital or acquired thrombophilia Stroke (< 1 month) Elective arthroplasty Hip, pelvis, or leg fracture Acute spinal cord injury (< 1 month) Prophylaxis Regimen Total Risk Factor Score Risk Level Prophylaxis Regimen 0-1 Low Early ambulation 2 Moderate Order ONE of the following: *Sequential Compression Device (SCD) *Heparin 5000 units SQ BID 3-4 Higher Order ONE of the following medications: *Heparin 5000 units SQ TID *Enoxaparin/Lovenox 40 mg SQ daily (WT < 150 kg, CrCl > 30 mL/min) *Enoxaparin/Lovenox 30 mg SQ daily (WT < 150 kg, CrCl > 10-29 mL/min) *Enoxaparin/Lovenox 30 mg SQ BID (WT < 150 kg, CrCl > 30 mL/min) AND/OR *Sequential Compression Device (SCD) 5 or more Highest Order ONE of the following medications: *Heparin 5000 units SQ TID (Preferred with Epidurals) *Enoxaparin/Lovenox 40 mg SQ daily (WT < 150 kg, CrCl > 30 mL/min) *Enoxaparin/Lovenox 30 mg SQ daily (WT < 150 kg, CrCl > 10-29 mL/min) *Enoxaparin/Lovenox 30 mg SQ BID (WT < 150 kg, CrCl > 30 mL/min) AND *Sequential Compression Device (SCD) Assessment and Plan Problem List: (1) Metastatic breast cancer ICD Code: C50.919 - Malignant neoplasm of unspecified site of unspecified female breast (2) Acute kidney failure ICD Code: N17.9 - Acute kidney failure, unspecified Status: Acute Assessment and Plan 62-year-old female with past medical history significant for HER/ner over expressing metastatic breast cancer diagnosed in 2012, osteoporosis, peripheral neuropathy, and intractable nausea and vomiting. Patient is currently under the care of Dr. Cordero oncology who was instructed patient to come to the emergency department due to decreased renal function. Metastatic breast cancer - Initial diagnosis in 2012, currently being treated by . - Completed lab work with abnormal renal function, patient instructed to come to the ED - CT of the abdomen and pelvis completed 11/29/17 reviewed, 1. findings indicate interval progression of metastatic disease when compared to prior CT from approximately one year ago. The liver mass has significantly increased in size and there is a new retroperitoneal lymphadenopathy in the abdomen. New free fluid in the pelvis. 2. Innumerable small pulmonary nodules at the lung bases characteristic of metastatic disease. There are small associated bilateral pleural effusions. 3. Heterogenous bones with osseous metastases metastatic disease. There are persistent sclerotic and lucent lesions, some of which have increased in size over the one-year interval. - Bilateral leg swelling, ultrasound negative for DVT - Will consult Dr. Cordero so she can follow along while patient is hospitalized, appreciate recommendations - Discussed with patient that we will also be consulted palliative care to establish goals. - Pain control with by mouth [place] and IV morphine for breakthrough pain. ARF - Review of lab work completed in ED with creatinine 2.74, BUN 65, GFR 17 - Looking back through patient's history of creatinine dating as far as March 2016 she had normal renal function prior. - Patient already states she has discontinued gabapentin several weeks ago. - CT scan completed 11/29/17 reviewed, kidneys are normal size and shape, there is no mass, stone, or hydronephrosis noted. Of note patient did have positive UA. - Patient with bilateral leg edema, free fluid in the pelvis on CT along with small bilateral pleural effusions. Total albumin on labs 2.1. Patient did receive 500 bolus of NS while in ED. Will hold off on fluids or diuretics until nephrology evaluates patient. Consider providing albumin prior to fluids. - Will consult nephrology, appreciate recommendations. - Avoid nephrotoxins, closely follow renal function. Transaminitis - Admitted to the hospital in [place] in October 2017 with bilirubin 29.2, AST 191, ALC 106, alkaline phosphatase 884. - Patient recently underwent ERCP on 03/14/[address]John Stovall in [place]. Stricture was identified and she underwent biliary stent placement in the common bile duct. - Looking back through [employer] EMR trending since November of this year Bilirubin 14.6--> 14.0--> 12.0--> 12.2 AST 211--> 250--> 328--> 322 ALT 90-->97-->103 alkaline phosphatase 1128--> 1163--> 1403 - Coag panel completed today reviewed, PT 12.8, INR 1.3, APTT 51.3 - It appears as though her levels have been trending down, coag stable, consider GI consult in the future if needed. Anemia - Labwork completed in ED reviewed. Hemoglobin 7.9, hematocrit 24.3, platelet count 180. Looking back through patient's lab work it appears as though she has been slowly trending down, however RDW is elevated at 18.4 - Patient does not report any bleeding, 1 unit of PRBCs ordered by ED physician. -Continue following trend Urinary tract infection - UA completed in ED with large amounts of leukocyte esterase, and WBCs, culture indicated. - Patient received 1 g of ceftriaxone IV while in emergency department - Will provide ceftriaxone 1 g tomorrow, follow urine cultures and sensitivities and adjust antibiotics accordingly. Caution due to renal function. Neuropathy, chronic - She reports she has quit taking Lyrica and gabapentin, no complaints of neuropathy - Will hold off for the moment due to decreased renal function, consider restarting at a very low-dose. Mental status changes - Patient with a history of cerebral lesion, seen and evaluated by radiation oncology . - Completed fractionated stereotactic radiotherapy for a left cerebellar lesion on 12/31/16. - No neuro deficits noted on exam, possibly related to pain medication, consider CT scan of brain, will defer to oncology services for this. - Continue monitoring mental status. This note was transcribed by allen Owens. I, Dr. Ynag Worthington personally performed the history, physical exam, and medical decision making; and confirmed the accuracy of the information in the transcribed note. Authenticated by Dr. Yang Worthington on 11/29/17 at 16:38. Code Status Full code Discussed Condition With Patient, , ED physician Physician Certification 2 Midnight Certification Type: Admission for Inpatient Services Order for Inpatient Services The services are ordered in accordance with Medicare regulations or non- Medicare payer requirements, as applicable. In the case of services not specified as inpatient-only, they are appropriately provided as inpatient services in accordance with the 2-midnight benchmark. Estimated LOS (days): 5 days is the estimated time the patient will need to remain in the hospital, assuming treatment plan goals are met and no additional complications. Post-Hospital Plan: Not yet determined Problem Qualifiers (1) Acute kidney failure: Qualified Codes: N17.9 - Acute kidney failure, unspecified (2) UTI (urinary tract infection): Qualified Codes: N30.01 - Acute cystitis with hematuria (3) Anemia: Qualified Codes: D64.9 - Anemia, unspecified Zohra Owens Nov 29, 2017 16:38 Yang Worthington MD Nov 29, 2017 16:41
[2017-11-29] MEDS ORDERED: BISACODYL 10 MG SUPP RECTAL PRN (17:00)
[2017-11-29] MEDS ORDERED: RESP: ALBUTEROL 2.5 MG/IPRATROPIUM 0.5 MG NEB (PRN) NEB (17:00)
[2017-11-29] MEDS ORDERED: ACETAMINOPHEN/HYDROcodone 325 MG/7.5 MG TAB PO PRN (17:00)
[2017-11-29] MEDS ORDERED: MAGNESIUM HYDROXIDE SUSP 30 ML CUP PO PRN (17:00)
[2017-11-29] MEDS ORDERED: ACETAMINOPHEN 325 MG TAB PO PRN (17:00)
[2017-11-29] MEDS ORDERED: ONDANSETRON HCL 4 MG/2 ML VIAL IVP PRN (17:00)
[2017-11-29] MEDS ORDERED: NALOXONE HCL 0.4 MG/ML AMP IV PUSH PRN (17:00)
[2017-11-29] MEDS ORDERED: LACTULOSE SYRUP 20 GM/30 ML CUP PO PRN (17:00)
[2017-11-29] MEDS ORDERED: ACETAMINOPHEN/HYDROcodone 325 MG/5 MG TAB PO PRN (17:00)
[2017-11-29] MEDS ORDERED: MORPHINE SULFATE 2 MG/ML INJ IV PUSH PRN (17:00)
[2017-11-29] MEDS ORDERED: SODIUM CHLORIDE 0.9% FLUSH 10 ML FLUSH IV FLUSH PRN (17:00)
[2017-11-29] MEDS ORDERED: SENNOSIDES 8.6 MG TAB PO PRN (17:00)
[2017-11-29 18:39] VITALS: BP 131/53; PULSE 101; RESP 18; O2SAT 100
[2017-11-29 19:30] VITALS: O2SAT 98
[2017-11-29 20:30] VITALS: BP 99/56; PULSE 104; RESP 16; TEMP 98; O2SAT 93
[2017-11-29] MEDS: DOCUSATE SODIUM 50 MG/SENNA 8.6 MG TAB PO SCH (21:00)
[2017-11-29] MEDS: SODIUM CHLORIDE 0.9% FLUSH 10 ML FLUSH IV FLUSH SCH (21:10)
[2017-11-29 23:00] VITALS: BP 96/52; PULSE 105; RESP 16; TEMP 96.7; O2SAT 92
[2017-11-30] VITALS: BP 94/54; PULSE 100; RESP 16; TEMP 95.7; O2SAT 95
[2017-11-30 04:00] VITALS: BP 84/48; PULSE 110; RESP 16; TEMP 96.7; O2SAT 94
[2017-11-30 05:48] LABS: HEMATOCRIT 22.7 % (35.0-46.0); HEMOGLOBIN 7.8 GM/DL (11.6-15.3); MEAN CELL VOLUME 101.7 FL (80.0-100.0); MEAN CORPUSCULAR HEMOGLOBIN 34.8 PG (27.0-34.0); MEAN CORPUSCULAR HGB CONC 34.2 % (32.0-36.0); MEAN PLATELET VOLUME 7.3 FL (7.0-11.0); PLATELET COUNT 165 TH/MM3 (150-450); RED BLOOD COUNT 2.23 MIL/MM3 (4.00-5.30); RED CELL DISTRIBUTION WIDTH 18.4 % (11.6-17.2); WHITE BLOOD COUNT 7.6 TH/MM3 (4.0-11.0)
[2017-11-30 06:08] LABS: ALBUMIN 1.9 GM/DL (3.4-5.0); AST (GOT) 275 U/L (15-37); BICARBONATE 19.1 MEQ/L (21.0-32.0); BLOOD UREA NITROGEN 66 MG/DL (7-18); CALCIUM 8.7 MG/DL (8.5-10.1); CHLORIDE 95 MEQ/L (98-107); CREATININE 2.52 MG/DL (0.50-1.00); GLOMERULAR FILTRATION RATE 19 ML/MIN (>89); GLUCOSE,RANDOM 75 MG/DL (74-106); SODIUM (NA) 129 MEQ/L (136-145)
[2017-11-30 06:10] LABS: ALT (GPT) 92 U/L (10-53)
[2017-11-30 06:23] LABS: ALKALINE PHOSPHATASE 1284 U/L (45-117); TOTAL BILIRUBIN ADULT 11.1 MG/DL (0.2-1.0); TOTAL PROTEIN 6.5 GM/DL (6.4-8.2)
[2017-11-30 07:25] VITALS: BP 87/49
[2017-11-30 08:00] VITALS: BP 88/53; PULSE 110; RESP 18; TEMP 97; O2SAT 98
[2017-11-30 08:03] LABS: BANDS 13 % (0-6); LYMPHOCYTES 1 % (9-44); MONOCYTES 2 % (0-8); NEUTROPHIL # MANUAL DIFF 7.4 TH/MM3 (1.8-7.7); POLYS (SEG NEUTROPHILS) 84 % (16-70)
[2017-11-30] MEDS: DOCUSATE SODIUM 50 MG/SENNA 8.6 MG TAB PO SCH ×2 (08:07→08:08)
[2017-11-30] MEDS ORDERED: cefTRIAXone INJ 1,000 MG in SODIUM CHLORIDE 0.9% INJ 100 ML IV ONE (09:00)
[2017-11-30] MEDS: SODIUM CHLORIDE 0.9% FLUSH 10 ML FLUSH IV FLUSH SCH (09:00)
--- NOTE | 2017-11-30 09:24 | PD.CONS ---
History of Present Illness Service Nephrology Consult Requested By Attending Reason for Consult ARSEN Primary Care Physician Non-Staff Diagnoses: (1) Lower extremity edema (2) Abnormal urine (3) Acute kidney failure (4) Anemia History of Present Illness Patient is a 62-year-old female that presents to the ED and admitted with abnormal labs and ARSEN. Patient has stage IV breast cancer has metastasized to the liver and other areas. Apparently physician was concerned about possible metastasis to the kidney causing the acute kidney failure. Patient last had chemotherapy . Reports shortness of breath on exertion. She states that for the past week she developed severe swelling to the lower legs for the past week. Abnormal urine noted patient denies dysuria however some suprapubic discomfort noted. (Barby Gordon) Review of Systems Constitutional: COMPLAINS OF: Fatigue Respiratory: COMPLAINS OF: Shortness of breath Cardiovascular: COMPLAINS OF: Lower Extremity Edema Psychiatric: COMPLAINS OF: Confusion (Barby Gordon) Past Family Social History Allergies: Coded Allergies: ibandronate sodium (Unverified Allergy, Severe, Twitching, 11/29/17) like electric shock per pt alendronate sodium (Unverified Allergy, Unknown, 11/29/17) Uncoded Allergies: bon (Allergy, Severe, Twitching, 12/04/16) states "electric shock" Past Medical History Progressive metastatic breast cancer Osteoporosis Peripheral neuropathy Intractable N/V Past Surgical History Port placement Colonoscopy Liver biopsy ERCP with common bile duct stent. Active Ordered Medications Current Medications Medications (Trade) Dose Ordered Sig/Andrew Route Start Time Stop Time Status Last Admin Ceftriaxone Sodium 1000 mg/ Sodium Chloride 100 ml @ 200 mls/hr ONCE ONCE IV 11/30/17 09:00 11/30/17 09:29 11/30/17 08:07 (NS Flush) 2 ml UNSCH PRN IV FLUSH 11/29/17 17:00 (NS Flush) 2 ml BID IV FLUSH 11/29/17 21:00 11/29/17 21:10 (Zofran Inj) 4 mg Q6H PRN IVP 11/29/17 17:00 11/30/17 03:53 (Tylenol) 650 mg Q6H PRN PO 11/29/17 17:00 ([place] 5-325 Mg) 1 tab Q4H PRN PO 11/29/17 17:00 ([place] 7.5-325 Mg) 1 tab Q4H PRN PO 11/29/17 17:00 (Morphine Inj) 2 mg Q4H PRN IV PUSH 11/29/17 17:00 (Narcan Inj) 0.4 mg UNSCH PRN IV PUSH 11/29/17 17:00 (Krystal-Colace) 1 tab BID PO 11/29/17 21:00 (Milk Of Magnesia Liq) 30 ml Q12H PRN PO 11/29/17 17:00 (Senokot) 17.2 mg Q12H PRN PO 11/29/17 17:00 (Dulcolax Supp) 10 mg DAILY PRN RECTAL 11/29/17 17:00 (Lactulose Liq) 30 ml DAILY PRN PO 11/29/17 17:00 (Duoneb Neb) 1 ampule Q2HR NEB PRN NEB 11/29/17 17:00 Social History Quit smoking 15 years ago No ETOH use in 5 years Lives with (Barby GordonZion AYOUB) Physical Exam Vital Signs Vital Signs Date Time Temp Pulse Resp B/P (MAP) Pulse Ox O2 Delivery O2 Flow Rate FiO2 11/30/17 07:25 87/49 (62) 11/30/17 04:00 96.7 110 16 84/48 (60) 94 11/30/17 00:00 95.7 100 16 94/54 (67) 95 11/29/17 23:00 96.7 105 16 96/52 (67) 92 11/29/17 20:30 98.0 104 16 99/56 (70) 93 11/29/17 19:30 98 11/29/17 18:39 101 18 131/53 (79) 100 Room Air 11/29/17 14:52 18 Room Air 11/29/17 14:18 97.7 110 18 93/50 (64) 97 Physical Exam GENERAL: This is a frail, jaundice, ashy female in no apparent distress. SKIN: Jaundice. Cool and dry. HEAD: Atraumatic. Normocephalic. No temporal or scalp tenderness. NECK: Trachea midline. No JVD. Supple, nontender, no meningeal signs. CARDIOVASCULAR: Sinus tachycardia without murmurs, gallops, or rubs. RESPIRATORY: Bilateral breath sounds diminished at bases. No wheezes, rales, or rhonchi. GASTROINTESTINAL: Abdomen soft, non-tender to light palpation, nondistended. No palpable masses. No guarding. MUSCULOSKELETAL: Bilateral lower extremities with +4 pitting edema. No joint tenderness, effusion, or edema noted. No calf tenderness. NEUROLOGICAL: Awake and alert. Normal speech, no facial droop. Laboratory Laboratory Tests Test 11/29/17 15:03 11/29/17 15:50 11/30/17 05:00 White Blood Count 8.4 7.6 Red Blood Count 2.40 2.23 Hemoglobin 7.9 7.8 Hematocrit 24.3 22.7 Mean Corpuscular Volume 101.3 101.7 Mean Corpuscular Hemoglobin 32.9 34.8 Mean Corpuscular Hemoglobin Concent 32.5 34.2 Red Cell Distribution Width 18.4 18.4 Platelet Count 180 165 Mean Platelet Volume 7.6 7.3 CBC Comment AUTO DIFF AUTO DIFF Differential Total Cells Counted 100 100 Neutrophils % (Manual) 83 84 Band Neutrophils % 13 13 Lymphocytes % 2 1 Monocytes % 2 2 Neutrophils # (Manual) 8.1 7.4 Differential Comment FINAL DIFF MANUAL FINAL DIFF MANUAL Platelet Estimate NORMAL NORMAL Platelet Morphology Comment NORMAL NORMAL Keratocytes OCC Prothrombin Time 12.8 Prothromb Time International Ratio 1.3 Activated Partial Thromboplast Time 51.3 Blood Urea Nitrogen 65 66 Creatinine 2.74 2.52 Random Glucose 85 75 Total Protein 7.2 6.5 Albumin 2.1 1.9 Calcium Level 8.7 8.7 Alkaline Phosphatase 1492 1284 Aspartate Amino Transf (AST/SGOT) 322 275 Alanine Aminotransferase (ALT/SGPT) 103 92 Total Bilirubin 12.2 11.1 Sodium Level 127 129 Potassium Level 4.8 4.7 Chloride Level 95 95 Carbon Dioxide Level 20.2 19.1 Anion Gap 12 15 Estimat Glomerular Filtration Rate 17 19 B-Type Natriuretic Peptide 30 Urine Color DARK-BROWN Urine Turbidity CLOUDY Urine pH 5.5 Urine Specific [place] 1.018 Urine Protein 30 Urine Glucose (UA) NEG Urine Ketones TRACE Urine Occult Blood SMALL Urine Nitrite NEG Urine Bilirubin LARGE Urine Urobilinogen GREATER THAN 12.0 Urine Leukocyte Esterase LARGE Urine RBC 11 Urine WBC 111 Urine WBC Clumps MOD Urine Squamous Epithelial Cells 3 Urine Hyaline Casts 8 Urine Mucus FEW Microscopic Urinalysis Comment CULTURE INDICATED Date/Time Source Procedure Growth Status 11/29/17 15:50 Urine Clean Catch Urine Culture Pending Received (Barby Gordon) Result Diagram: 11/30/17 0500 11/30/17 0500 Imaging Last Impressions Lower Extremity Ultrasound 11/29/17 0000 Signed Impressions: Service Date/Time: Wednesday, November 29, 2017 15:19 - CONCLUSION: 1. No DVT identified. 2. Edematous changes within both lower extremities. Omid Gupta MD Abdomen/Pelvis CT 11/29/17 0000 Signed Impressions: Service Date/Time: Wednesday, November 29, 2017 15:55 - CONCLUSION: 1. Findings indicate interval progression of metastatic disease when compared to the prior CT from approximately 1 year ago. The liver mass has significantly increased in size and there is a new retroperitoneal lymphadenopathy in the abdomen. There is new free fluid in the pelvis. 2. Innumerable small pulmonary nodules at the lung bases characteristic of metastatic disease. There are small associated bilateral pleural effusions. 3. Heterogeneous bones with osseous metastases metastatic disease. There are persistent sclerotic and lucent lesions, some of which have increased in size over the one year interval. John Velasquez MD (Barby Gordon) Assessment and Plan Problem List: (1) Acute kidney failure ICD Codes: N17.9 - Acute kidney failure, unspecified Status: Acute Plan: New onset ARSEN creatinine at 2.52 today down from 2.74 yesterday. BUN at 66, Reports that she has urinated X 2 last night. Poor appetite however reports good fluid intake. Will order strict I+O's. Potassium normal at 4.7 Blood pressure on lower side at 87/49 this morning. No dizziness reported. Will order renal ultrasound Avoid nephrotoxins (2) UTI (urinary tract infection) ICD Codes: N39.0 - Urinary tract infection, site not specified Status: Acute Plan: Culture is pending. Rocephin X 2 given (3) Lower extremity edema ICD Codes: R60.0 - Localized edema Plan: 4 + pitting edema in lower extremity Encouraged to elevate legs US of lower extremity negative for DVT (4) Anemia ICD Codes: D64.9 - Anemia, unspecified Status: Acute Plan: HGB 7.8 this morning. Hematology is consulted. (Barby Gordon) Problem List: (1) Acute kidney failure ICD Codes: N17.9 - Acute kidney failure, unspecified Status: Acute Plan: New onset ARSEN creatinine at 2.52 today down from 2.74 yesterday. BUN at 66, Reports that she has urinated X 2 last night. Poor appetite however reports good fluid intake. Will order strict I+O's. Potassium normal at 4.7 Blood pressure on lower side at 87/49 this morning. No dizziness reported. Will order renal ultrasound Avoid nephrotoxins. Most likely has ARSEN due to either ATN from Hypotension or drug related. Check urine Na. and osmolality. Has moderate leg edema, and low Albumin, add IV Albumin, also will help the BP. (2) UTI (urinary tract infection) ICD Codes: N39.0 - Urinary tract infection, site not specified Status: Acute Plan: Culture is pending. Rocephin X 2 given (3) Lower extremity edema ICD Codes: R60.0 - Localized edema Plan: 4 + pitting edema in lower extremity Encouraged to elevate legs US of lower extremity negative for DVT (4) Anemia ICD Codes: D64.9 - Anemia, unspecified Status: Acute Plan: HGB 7.8 this morning. Hematology is consulted. (Brenda Orellana MD) Problem Qualifiers (1) Acute kidney failure: Qualified Codes: N17.9 - Acute kidney failure, unspecified (2) Anemia: Qualified Codes: D64.9 - Anemia, unspecified (3) UTI (urinary tract infection): Qualified Codes: N30.01 - Acute cystitis with hematuria Barby Gordon Nov 30, 2017 09:24 Brenda Orellana MD Nov 30, 2017 10:49
[2017-11-30] MEDS ORDERED: ALBUMIN 25% INJ 100 ML IV SCH (11:00)
--- NOTE | 2017-11-30 11:38 | PD.CONS ---
Consult Service Palliative Care Consult Requested By Dr. Worthington Primary Care Physician Primary Oncologist- Dr. Sherry Smith Reason for Consultation a. To assist with evaluation and management of symptoms including:Pain, Decreased oral intake, physical deconditioning b. To assist medical decision maker(s) with: better understanding of current medical conditions; weighing benefits/burdens of medical treatment options; making medical treatment decisions. HPI History of Present Illness Mrs Anton is a 62 years old female with a past medical history of HER2/mani- over expressing metastatic breast cancer diagnosed in 2012, peripheral neuropathy, osteoporosis and intractable nausea and vomiting. Patient travels back and forth to [place] and [place]. In [place], she is seen by Dr. Sherry Smith and in [place] by Dr. Cordero. Patient was treated with Kadcyla and was stopped due to pneumonitis. Patient also has ICT BUSINESS ANALYST, liver and bony metastatic disease. She was treated with combination chemotherapy. ICT BUSINESS ANALYST metastatic disease was treated with fractionated stereotactic radiotherapy for a left cerebellar lesion in December, in [place] .Patient was maintained on Herceptin and Perjeta prior to progression of disease to the liver which was noted after increase in liver function tests. ERCP was performed in [place] and biliary stricture was noted and she underwent placement of a biliary stent of the common bile duct. After procedure patient came back to [place] where she wanted to participate in a clinical trial by [facility]. Unfortunately patient was unable to participate due to elevated bilirubin and poor performance status. Dr Cordero referred her to a r d manager in November 2017 when she came back to [place]. Patient was initiated on Herceptin . She was due for her second dose which was scheduled for 11/30/17 but her labwork showed decreased renal function and was sent to the ER on 11/29/[address] Cordero for further evaluation. ER course: * Vital signs: Temperature 97.7, pulse 110, respirations 18, BP 93/50 and O2 saturation 97% on room air * Laboratory workup revealed WBC 8.4, hemoglobin 7.9, hematocrit 24.3, platelet count 180, sodium 127, potassium 4.8, BUN/creatinine 65/2.74, total bilirubin 12.2, AST 322, ALT 103, alkaline [id number], total protein 7.2, albumin 2.1, PT 12.8, INR 1.3, APTT 51.3. * Lower extremity ultrasound revealed no DVT. Edematous changes with both lower extremities. * Abdomen/pelvis CT revealed significantly increase in size of liver mass, with a new retroperitoneal lymphadenopathy in the abdomen. New free fluid in the pelvis. Innumerable small pulmonary nodules at the lung bases characteristic of metastatic disease. Small associated bilateral pleural effusions. Heterogenous bones with osseous metastasis metastatic disease. Persistent sclerotic and lucent lesions some of which have increased size over a year interval. * UA with large amounts of leukocyte esterase and WBCs culture indicated. Oncology Dr. Cordero consulted. Nephrology Dr. Orellana consulted for management of acute kidney injury. Gastroenterology Dr. Zamora consulted for evaluation of hyper bilirubinemia status post metal stent placement. Clinical course complicated with diagnostic tests showing increase in size of liver mass, with a new retroperitoneal lymphadenopathy in the abdomen, free fluid in pelvis, pulmonary nodules , bilateral pleural effusions and increase in size of persistent sclerotic and lucent lesions despite treatment rendered prior to current imaging. Palliative care consulted to evaluate also for end of life. Patient seen and examined in her room in the presence of her . Patient is alert, oriented to self, place and time with some confusion. Patient denies pain, and nausea. Endorsing poor appetite. Patient keeps asking when they are living the hospital. Patient is afebrile. Pulse low 100s, SBP mid 80s- mid 90s and O2 saturation mid to high 90s on room air. Laboratory workup today revealing WBC 7.6, Hgb 7.8, Hct 22.7, Plt Count 165, Sodium 129, potassium 4.7, BUN/Creat 66/2.52, GFR 19, Total bilirubin 11.1, AST 275, ALT 92, Alkaline phosphatase 1284, total protein 6.5, albumin 1.9. No recent imaging. Updated on patient`s medical status. Obtained psychosocial history and medical history. Patient appears to lack full understanding of her current medical condition. Most of the questions and discussion is done by . Patient does not have advance directives and is not willing to complete any at this time. Patient verbalizes that she has discussed her wishes with her . Patient stated that in case she cannot make medical decisions for herself her will make medical decisions for her. Patient`s seems to have a good understanding of patient`s condition and disease progression despite the chemotherapy and radiation treatment she has gone through already. Patient`s states that Dr. Cordero has seen patient today and has recommended comfort care given the fact that she is limited with what treatment she can offer especially when renal and liver function are compromised at this time. He did mention that immunotherapy was offered- though he was not sure about it. Patient`s asked about hospice care and shared information regarding hospice though he intends to consider that after patient has been seen by all consulted physicians nephrology and gastroenterology. Patient and want to hear treatment options available from the GI and nephrology physicians. If there are no available options, patient would like to be discharged and maybe transition to comfort care, most likely in [place] where most of patient`s family resides. Discussed option of transitioning patient to comfort care through hospice services locally and then transferring to an out of state hospice whenever patient and spouse are ready to move back to [place]. Addressed code status, discussed risks, benefits and limitations of CPR given ongoing comorbidities, patient stated that she wanted to be resuscitated and she was able to state what it entails inclusive of chest compressions and anything possible to keep her alive. Patient`s spouse hesitantly agreed with patient. . Function/Cognitive Trajectory Patient is independent with her ADLs though states he assists her most of the times. In the past week patient has been increasingly getting weak and less mobile requiring her to push her around on her rolling walker, increased fatigue and shortness of breath with exertion. She also has had decreased appetite. Per -she has lost approximately 20lbs in a few months ( was unable to remember exact number). She also has had some confusion in the past few days. . Review of Systems ROS Limitations: Altered Mental Status Constitutional: COMPLAINS OF: Fatigue, Change in appetite, Generalized weakness Eyes: DENIES: Eye inflammation Ears, nose, mouth, throat: DENIES: Hearing loss Respiratory: COMPLAINS OF: Shortness of breath, DENIES: Cough, Hemoptysis Cardiovascular: COMPLAINS OF: Lower Extremity Edema Gastrointestinal: COMPLAINS OF: Abdominal pain, Difficulty Swallowing, DENIES: Constipation, Diarrhea, Nausea, Vomiting Musculoskeletal: COMPLAINS OF: Back pain Hematologic/Lymphatics: DENIES: Bruising Neurologic: DENIES: Speech Problems Psychiatric: COMPLAINS OF: Confusion Past Family Social History Coded Allergies: ibandronate sodium (Unverified Allergy, Severe, Twitching, 11/29/17) like electric shock per pt alendronate sodium (Unverified Allergy, Unknown, 11/29/17) Uncoded Allergies: bon (Allergy, Severe, Twitching, 12/04/16) states "electric shock" Past Medical History Metastatic HER2/mani over-expressing breast cancer ICT BUSINESS ANALYST metastatic disease status post radiation Bony metastatic disease Osteoporosis Chronic back pain. Peripheral neuropathy Intractable N/V Radiation Therapy (2013 [facility], [place], [place]. [place] 2017.) Past Surgical History Port placement Colonoscopy in 2008 Liver biopsy-in 2012 ERCP with common bile duct stent-November 13, 2017 . Reported Medications Restoril (Temazepam) 15 Mg Cap 15 Mg PO HS PRN Protonix (Pantoprazole Sodium) 40 Mg Tab 40 Mg PO DAILY PRN Dexamethasone 4 Mg Tab 6 Mg PO QID Gabapentin 300 Mg Cap 600 Mg PO BID Zofran (Ondansetron HCl) 4 Mg Tab 4 Mg PO Q8HR PRN Lyrica (Pregabalin) 25 Mg Cap 25 Mg PO BID Oxycodone (Oxycodone HCl) 10 Mg Tab 10 Mg PO Q4H PRN Morphine ER (Morphine Sulfate) 15 Mg Tab 15 Mg PO BID . Current Medications Medications (Trade) Dose Ordered Sig/Andrew Route Start Time Stop Time Status Last Admin (NS Flush) 2 ml UNSCH PRN IV FLUSH 11/29/17 17:00 (NS Flush) 2 ml BID IV FLUSH 11/29/17 21:00 11/29/17 21:10 (Zofran Inj) 4 mg Q6H PRN IVP 11/29/17 17:00 11/30/17 03:53 (Tylenol) 650 mg Q6H PRN PO 11/29/17 17:00 (Leroy 5-325 Mg) 1 tab Q4H PRN PO 11/29/17 17:00 (Leroy 7.5-325 Mg) 1 tab Q4H PRN PO 11/29/17 17:00 (Morphine Inj) 2 mg Q4H PRN IV PUSH 11/29/17 17:00 (Narcan Inj) 0.4 mg UNSCH PRN IV PUSH 11/29/17 17:00 (Krystal-Colace) 1 tab BID PO 11/29/17 21:00 (Milk Of Magnesia Liq) 30 ml Q12H PRN PO 11/29/17 17:00 (Senokot) 17.2 mg Q12H PRN PO 11/29/17 17:00 (Dulcolax Supp) 10 mg DAILY PRN RECTAL 11/29/17 17:00 (Lactulose Liq) 30 ml DAILY PRN PO 11/29/17 17:00 (Duoneb Neb) 1 ampule Q2HR NEB PRN NEB 11/29/17 17:00 Family History Mother- at age 64. She had cancer Father- at age 63 from a heart attack Sister of lung cancer Brother of CHF complications. Had extensive cardiac disease Patient has 2 adult children son and daughter, 2 sisters and 2 brothers who are still living and well. . Substance Use Tobacco: History of smoking- smoked approximately a pack/week. Quit 15 years ago Alcohol: Drinks occasionally Prescription med abuse: Denies Illicits: None . Psychosocial History Patient was born and raised in [place]. Patient has been twice and once. She has been to her current for about 20 years. Patient has 2 adult children daughter and son from her first marriage. 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 Patient and her have been "snowbirds" for the past couple of years. They have a home locally and they usually come to [place] in November and leave in March. They spend the rest of the year in [place] with family. Patient liked cooking which she is not able to do due to her illness. . Spiritual/Cultural Factors Patient is [place] . Living Will: Never completed Health Care Surrogate: Never completed Durable Power of Wholesale Account Manager: Never completed Today's verbally stated goals: Patient and spouse want to hear treatment options offered by consulted physicians (GI and Nephrology) and then they can decide whether to pursue aggressive treatment or transition to comfort care. . Ethical and Legal Issues None identified at this time. . Physical Exam Vital Signs Date Time Temp Pulse Resp B/P (MAP) Pulse Ox O2 Delivery O2 Flow Rate FiO2 11/30/17 08:00 97.0 110 18 88/53 (65) 98 11/30/17 07:25 87/49 (62) 11/30/17 04:00 96.7 110 16 84/48 (60) 94 1/16/18 00:00 95.7 100 16 94/54 (67) 95 11/29/17 23:00 96.7 105 16 96/52 (67) 92 11/29/17 20:30 98.0 104 16 99/56 (70) 93 11/29/17 19:30 98 11/29/17 18:39 101 18 131/53 (79) 100 Room Air 11/29/17 14:52 18 Room Air 11/29/17 14:18 97.7 110 18 93/50 (64) 97 Exam CONSTITUTIONAL/GENERAL: This is an cachectic female with pronounced bony prominences and muscle wasting, in no apparent distress. TUBES/LINES/DRAINS:Infusaport R chest wall SKIN: Jaundiced,No rashes, or lesions. Ecchymoses on upper extremities. No wounds seen anteriorly. Cool to touch bilateral lower extremities. Not diaphoretic. HEAD: Atraumatic. Normocephalic. EYES: Pupils equal and round and reactive. Extraocular motions intact. No scleral icterus. No injection or drainage. Fundi not examined. ENT: Hearing grossly normal. Nose without bleeding or purulent drainage. Moist oral mucosa NECK: Trachea midline. Supple, nontender. CARDIOVASCULAR: Regular rate and rhythm without murmurs, gallops, or rubs. No JVD. Peripheral pulses symmetric. Pitting 3+ edema to bilateral lower extremities beginning from pedal up to just below the knees. RESPIRATORY/CHEST: Symmetric, unlabored respirations. Clear to auscultation. Breath sounds equal bilaterally. No wheezes, rales, or rhonchi. GASTROINTESTINAL: Abdomen soft, non-tender, nondistended. No guarding. Bowel sounds present. Last BM 11/29/17 GENITOURINARY: Without palpable bladder distension. MUSCULOSKELETAL: Extremities without clubbing, cyanosis, or edema. No joint tenderness or effusion noted. No calf tenderness. No mottling or clubbing. NEUROLOGICAL: Awake and alert, oriented to self, place and time with some confusion. Motor and sensory grossly within normal limits. Follows commands. Moves all extremities. PSYCHIATRIC: No obvious anxiety/depression. no apparent hallucinations or other psychotic thought process. Diagnostic Tests Laboratory Laboratory Tests Test 11/29/17 15:03 11/29/17 15:50 11/30/17 05:00 White Blood Count 8.4 TH/MM3 (4.0-11.0) 7.6 TH/MM3 (4.0-11.0) Red Blood Count 2.40 MIL/MM3 (4.00-5.30) 2.23 MIL/MM3 (4.00-5.30) Hemoglobin 7.9 GM/DL (11.6-15.3) 7.8 GM/DL (11.6-15.3) Hematocrit 24.3 % (35.0-46.0) 22.7 % (35.0-46.0) Mean Corpuscular Volume 101.3 FL (80.0-100.0) 101.7 FL (80.0-100.0) Mean Corpuscular Hemoglobin 32.9 PG (27.0-34.0) 34.8 PG (27.0-34.0) Mean Corpuscular Hemoglobin Concent 32.5 % (32.0-36.0) 34.2 % (32.0-36.0) Red Cell Distribution Width 18.4 % (11.6-17.2) 18.4 % (11.6-17.2) Platelet Count 180 TH/MM3 (150-450) 165 TH/MM3 (150-450) Mean Platelet Volume 7.6 FL (7.0-11.0) 7.3 FL (7.0-11.0) CBC Comment AUTO DIFF AUTO DIFF Differential Total Cells Counted 100 100 Neutrophils % (Manual) 83 % (16-70) 84 % (16-70) Band Neutrophils % 13 % (0-6) 13 % (0-6) Lymphocytes % 2 % (9-44) 1 % (9-44) Monocytes % 2 % (0-8) 2 % (0-8) Neutrophils # (Manual) 8.1 TH/MM3 (1.8-7.7) 7.4 TH/MM3 (1.8-7.7) Differential Comment FINAL DIFF MANUAL FINAL DIFF MANUAL Platelet Estimate NORMAL (NORMAL) NORMAL (NORMAL) Platelet Morphology Comment NORMAL (NORMAL) NORMAL (NORMAL) Keratocytes OCC (NORMAL) Prothrombin Time 12.8 SEC (9.8-11.6) Prothromb Time International Ratio 1.3 RATIO Activated Partial Thromboplast Time 51.3 SEC (24.3-30.1) Blood Urea Nitrogen 65 MG/DL (7-18) 66 MG/DL (7-18) Creatinine 2.74 MG/DL (0.50-1.00) 2.52 MG/DL (0.50-1.00) Random Glucose 85 MG/DL (74-106) 75 MG/DL (74-106) Total Protein 7.2 GM/DL (6.4-8.2) 6.5 GM/DL (6.4-8.2) Albumin 2.1 GM/DL (3.4-5.0) 1.9 GM/DL (3.4-5.0) Calcium Level 8.7 MG/DL (8.5-10.1) 8.7 MG/DL (8.5-10.1) Alkaline Phosphatase 1492 U/L (45-117) 1284 U/L (45-117) Aspartate Amino Transf (AST/SGOT) 322 U/L (15-37) 275 U/L (15-37) Alanine Aminotransferase (ALT/SGPT) 103 U/L (10-53) 92 U/L (10-53) Total Bilirubin 12.2 MG/DL (0.2-1.0) 11.1 MG/DL (0.2-1.0) Sodium Level 127 MEQ/L (136-145) 129 MEQ/L (136-145) Potassium Level 4.8 MEQ/L (3.5-5.1) 4.7 MEQ/L (3.5-5.1) Chloride Level 95 MEQ/L (98-107) 95 MEQ/L (98-107) Carbon Dioxide Level 20.2 MEQ/L (21.0-32.0) 19.1 MEQ/L (21.0-32.0) Anion Gap 12 MEQ/L (5-15) 15 MEQ/L (5-15) Estimat Glomerular Filtration Rate 17 ML/MIN (>89) 19 ML/MIN (>89) B-Type Natriuretic Peptide 30 PG/ML (0-100) Urine Color DARK-BROWN (YELLW/STRAW) Urine Turbidity CLOUDY (CLEAR) Urine pH 5.5 (5.0-8.5) Urine Specific [place] 1.018 (1.002-1.035) Urine Protein 30 mg/dL (NEG-TRACE) Urine Glucose (UA) NEG mg/dL (NEG) Urine Ketones TRACE mg/dL (NEG) Urine Occult Blood SMALL (NEG) Urine Nitrite NEG (NEG) Urine Bilirubin LARGE (NEG) Urine Urobilinogen GREATER THAN 12.0 MG/DL Urine Leukocyte Esterase LARGE (NEG) Urine RBC 11 /hpf (0-3) Urine WBC 111 /hpf (0-5) Urine WBC Clumps MOD (NONE) Urine Squamous Epithelial Cells 3 /hpf (0-5) Urine Hyaline Casts 8 /lpf (RARE) Urine Mucus FEW /lpf (OCC) Microscopic Urinalysis Comment CULTURE INDICATED Result Diagram: 11/30/17 0500 11/30/17 0500 Microbiology Microbiology Date/Time Source Procedure Growth Status 11/29/17 15:50 Urine Clean Catch Urine Culture Pending Received Imaging Last Impressions Lower Extremity Ultrasound 11/29/17 0000 Signed Impressions: Service Date/Time: Wednesday, November 29, 2017 15:19 - CONCLUSION: 1. No DVT identified. 2. Edematous changes within both lower extremities. Omid Gupta MD Abdomen/Pelvis CT 11/29/17 0000 Signed Impressions: Service Date/Time: Wednesday, November 29, 2017 15:55 - CONCLUSION: 1. Findings indicate interval progression of metastatic disease when compared to the prior CT from approximately 1 year ago. The liver mass has significantly increased in size and there is a new retroperitoneal lymphadenopathy in the abdomen. There is new free fluid in the pelvis. 2. Innumerable small pulmonary nodules at the lung bases characteristic of metastatic disease. There are small associated bilateral pleural effusions. 3. Heterogeneous bones with osseous metastases metastatic disease. There are persistent sclerotic and lucent lesions, some of which have increased in size over the one year interval. Jhon Velasquez MD Patient/Family Conference Family Conference Location: Bedside Issues Discussed: * Palliative care role, purpose, approach * Additional medical, psychosocial, and spiritual history * Patients general health, functional status, and cognitive changes in the months leading up to the current hospitalization * Patient/family understanding of the current medical problems * Patient/family understanding of prognosis * Patients goals of care as best understood from advance directives and/or conversations and/or values * Current medical treatment options and benefits/burdens of those options * Likely scenarios comparing ongoing aggressive care with a transition to comfort measures only * Questions answered to the best of my ability * Discussed hospice philosophy and benefits. * Palliative care contact information provided Assessment and Plan Disease Oriented Problem List: (1) Metastatic breast cancer (2) Acute kidney failure (3) Transaminitis (4) Neuropathy (5) UTI (urinary tract infection) Symptom Scale: (1) Pain Comment: Multifactorial. Patient has hx of neuropathy, and metastatic breast cancer. . (2) Confusion Comment: Multifactorial.Patient has a history of cerebral lesion s/p fractionated stereotactic radiotherapy for a left cerebellar lesion on 12/31/16. Patient takes Morphine ER 15mg BID and Oxycodone 10mg q 4hrs prn at home. reports that patient has not taken either of her pain medications since 48hrs ago. . (3) Physical deconditioning Comment: Progressive. . Pertinent Non-Medical Issues Psychosocial:Patient was born and raised in [place]. Patient has been twice and once. She has been to her current for about 20 years. Patient has 2 adult children daughter and son from her first marriage. 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 Patient and her have been "snowbirds" for the past couple of years. They have a home locally and they usually come to [place] in November and leave in March. They spend the rest of the year in [place] with family. Patient liked cooking which she is not able to do due to her illness. Spiritual:Patient is [place] Legal:Patient does not have advance directives. Ethical issues impacting care:None identified at this time . Important Contacts Spouse- Sloane Mckeon [phone] . Prognosis Mrs Anton is a 62 years old female with a past medical history of HER2/mani- over expressing metastatic breast cancer diagnosed in 2012, peripheral neuropathy, osteoporosis and intractable nausea and vomiting. Patient presented to the ER on 11/29/17 after she was instructed by her oncologist Dr. Cordero when she noted that her labwork showed decreased renal function. Clinical course complicated with diagnostic tests showing increase in size of liver mass , with a new retroperitoneal lymphadenopathy in the abdomen, free fluid in pelvis, pulmonary nodules , bilateral pleural effusions and increase in size of persistent sclerotic and lucent lesions despite treatment rendered prior to current imaging. Given ongoing comorbidities, patient remains at high risk for further complications, deterioration and decline. . Code Status: Full Code Plan PLAN: Legal decision maker: Patient is alert and oriented to self, place and time with some confusion. She seems to lack insight to her condition. Recommending shared decision making with her who according to [place] Statute will serve as patient`s Health Care Proxy. Goals: Aggressive for now. CODE STATUS: Full Code Patient appears to lack full understanding of her current medical condition. Most of the questions and discussion is done by . Patient does not have advance directives and is not willing to complete any at this time. Patient verbalizes that she has discussed her wishes with her . Patient stated that in case she cannot make medical decisions for herself her will make medical decisions for her. Patient`s seems to have a good understanding of patient`s condition and disease progression despite the chemotherapy and radiation treatment she has gone through already. Patient`s states that Dr. Cordero has seen patient today and has recommended comfort care given the fact that she is limited with what treatment she can offer especially when renal and liver function are compromised at this time. He did mention that immunotherapy was offered- though he was not sure about it. Patient`s asked about hospice care and shared information regarding hospice though he intends to consider that after patient has been seen by all consulted physicians nephrology and gastroenterology. Patient and want to hear treatment options available from the GI and nephrology physicians. If there are no available options, patient would like to be discharged and maybe transition to comfort care, most likely in [place] where most of patient`s family resides. Discussed option of transitioning patient to comfort care through hospice services locally and then transferring to an out of state hospice whenever patient and spouse are ready to move back to [place]. Addressed code status, discussed risks, benefits and limitations of CPR given ongoing comorbidities, patient stated that she wanted to be resuscitated and she was able to state what it entails inclusive of chest compressions and anything possible to keep her alive. Patient`s spouse hesitantly agreed with patient. SYMPTOMS: * Pain: Multifactorial. Patient has hx of neuropathy, and metastatic breast cancer.Patient takes Morphine ER 15mg BID and Oxycodone 10mg q 4hrs prn at home. reports that patient has not taken either of her pain medications since 48hrs ago. Currently denies pain. Patient has Hydrocodone/acetaminophen 5/ 325 and 7.5/325 Q 4 hrs prn and Morphine Sulfate 2mg IVP Q 4 hrs prn. Patient has not required any prn medication. * Confusion: Multifactorial.Patient has a history of cerebral lesion s/p fractionated stereotactic radiotherapy for a left cerebellar lesion on 12/31/16. Patient takes Morphine ER 15mg BID and Oxycodone 10mg q 4hrs prn at home. reports that patient has not taken either of her pain medications since 48hrs ago. Recommending monitoring for withdrawal symptoms. * Physical deconditioning: Progressive. Patient has history of metastatic breast cancer s/p chemotherapy and radiation, osteoporosis and neuropathy. Patient has been progressively getting weaker and having difficulty with ambulation. Patient has lost weight 12/05/16 weighed 51.6kg , 11/30/17 weighed 44.55kg. Most likely patient will continue to decline given her current medical condition and not sure if she will be able to participate and benefit from physical therapy. P Palliative care will continue to follow the patient during hospital course as condition evolves, to assist patient/decision-maker with understanding of their medical conditions, weighing benefits/burdens of treatment options, for clarification of goals of treatment. Additionally will assist with any symptoms of palliative concern Thank you for the opportunity to participate in the care of Ms. Anton. Attestation To help prompt me to consider important information that might be impacting today's encounter and assessment, information from prior notes written by myself or my colleagues may have been "brought forward" into today's note. My signature on this note, however, is an attestation that I personally performed the exam, history, and/or decision-making noted today, and, unless otherwise indicated, the interactions with patient, family, and staff as well as the review of records all occurred today. I also attest that the listed assessment and stated plan reflect my best clinical judgment today based on the combination of historical information, prior notes, and today's exam/ interactions. When time spent is documented, it refers only to time spent today by the signer, or if indicated, combined time spent today by collaborating physician/nurse practitioner. Sana Comer Nov 30, 2017 11:05
[2017-11-30 12:00] VITALS: BP 95/54; PULSE 112; RESP 18; TEMP 96.6; O2SAT 97
--- NOTE | 2017-11-30 14:25 | MB ---
cc: MEIR MORATAYA M.D. 1955 DATE OF SERVICE November 30, 2017. PRIMARY CARE PHYSICIAN No primary physician. CHIEF COMPLAINT Tl Horne MD, requests a consultation for Mrs. Anton regarding HER2/mani over-expressing metastatic breast cancer with hepatic insufficiency and acute renal failure. HISTORY OF PRESENT ILLNESS Mrs. Anton is a pleasant 62-year-old woman, a well-known patient with long history of a HER2/mani over-expressing metastatic breast cancer. She has liver, bone and MENTAL HEALTH SOCIAL WORKER metastatic disease. Her MENTAL HEALTH SOCIAL WORKER metastatic disease is stable and as been radiated. She was last on Kadcyla and was discontinued due to pneumonitis. In the wake of awaiting the start of new therapy, her bilirubin increased significantly. She was found to have more extensive and progressed liver metastatic disease with biliary obstruction. She underwent ERCP on November 13, 2017, corrected the local stricture and her bilirubin came down. She hurriedly returned to [place]. She expected to participate in a clinical trial which we were coordinating with [facility]. However, her bilirubin was still elevated and her performance status was significantly decreased. We were able to resume her Herceptin last week. She tolerated it well. In light of the hepatic insufficiency, we chose cytotoxic chemotherapy that would not be metabolized through the liver. Such a drug score was considered cisplatin. However, when she was seen in clinic by Dr. De Leon she was found to have worsened renal insufficiency. Her BUN and creatinine was at 25 and 0.59 on November 25 and her BUN and creatinine was 63 and 2.6 on November 29. For this reason she was sent to the hospital for acute renal failure. REVIEW OF SYSTEMS Ms. Anton describes leg swelling, decrease in appetite. She finds it difficult to eat or drink. She denies any pain. Interestingly her back pain is better. Her bilirubin has trended down. She and her are not ready for hospice. They are desirous of continued treatment. She denies any fevers, chills or night sweats. The rest of her review of systems is negative. PAST MEDICAL HISTORY 1. Peripheral neuropathy. 2. Metastatic HER2/mani over-expressing breast cancer. 3. MENTAL HEALTH SOCIAL WORKER metastatic disease status post radiation. 4. Bony metastatic disease. 5. Chronic back pain. 6. Osteoporosis. PAST SURGICAL HISTORY 1. Liver biopsy. 2. Colonoscopy . 3. ERCP. 4. Port placement. ALLERGIES BONIVA. FOSAMAX. FAMILY HISTORY Mother from cancer at age 64. Father had a heart attack at age 63. SOCIAL HISTORY She is , lives with her , quit smoking 10 years ago. She drinks alcohol occasionally. Denies any illicit drug use. CURRENT MEDICATIONS 1. Ceftriaxone. 2. Ondansetron. 3. Acetaminophen. 4. Morphine sulfate. 5. Narcan. 6. Lactulose. 7. DuoNebs. PHYSICAL EXAMINATION VITAL SIGNS: Temperature 96.7, heart rate 110, blood pressure 88/49, saturation 94%. GENERAL: Mrs. Anton is a cachectic-appearing woman who is jaundiced. HEENT: Her pupils are round, reactive to light and accommodation. Oropharynx is clear. NECK: Supple. LUNGS: Clear. CARDIOVASCULAR: Exam reveals tachycardia. ABDOMEN: Benign. Hepatomegaly noted previously. LOWER EXTREMITIES: With 3+ pitting edema. LABORATORY DATA Significant for anemia with hemoglobin of 7.8, platelet count 165, BUN of 66, creatinine 2.52, bilirubin of 11.1. ASSESSMENT AND PLAN Mrs. Anton is a 62-year-old woman with metastatic HER2/mani over-expressing breast cancer. We discussed possible response to Herceptin therapy alone when we restarted it last week. Her bilirubin has come down. We discussed the option of hospice. This is philosophically not acceptable to Mrs. Anton. She had expectation of proceeding with a clinical trial and active treatment for her breast cancer. Even at this stage with liver compromise and kidney compromise she is interested in treatment. We discussed that her liver insufficiency and renal failure does not allow us to use cytotoxic chemotherapy. We would be able to continue Herceptin and Perjeta should her performance status continue to be stable. She reports no significant telephone exchange operator the weekend except that she was sent in by my partner due to the renal insufficiency hoping to reverse a reversible cause. We discussed our tentative goal during this admission is to determine if there are any reversible items to her renal insufficiency and liver insufficiency. We discussed hepatorenal syndrome. We discussed my discussion with Gastroenterology previously about her obstruction. She has a metal stent in place. I does not appear that there would be other lesions that would be stentable but certainly it is worth consulting Gastroenterology to see if there is. All of the consultants would then complement the picture of Mrs. Anton of her condition. We discussed the critical nature of her condition. We discussed the potential risk even of continuing Herceptin and Perjeta. and Mrs. Anton understand and accept that. Lastly, we discussed off labeled use of a checkpoint inhibitor. This may be a possibility. We discussed limitations, that in the Phase I studies the patients had relatively good performance status and had liver and renal function when treated. We discussed the safety and efficacy of checkpoint inhibitors and breast cancer are being investigated under clinical trial, the expected response are for patients with PD-L1 high expression. It would take time to test her cancer to PD-L1. We can undergo this effort and proceed in trying a checkpoint inhibitor which is the only option other than the cytotoxic chemotherapy. For this she needs to maintain a relatively good performance status and be fit enough to try continued therapy. We will optimize her care in the hospital. We will consult Gastroenterology and Nephrology as planned. MD BIN Murdock/KENNEDI /8:02 AM /8:59 AM
[2017-11-30] MEDS ORDERED: BACT400T PO (15:33)
[2017-11-30] MEDS ORDERED: LACTTAB8 PO (15:33)
--- NOTE | 2017-11-30 15:36 | HHI.DS ---
Discharge Summary Admission Date Nov 29, 2017 at 16:35 Discharge Date: Nov 30, 2017 Admitting Diagnosis acute kidney injury, stage 4 breast cancer, UTI, liver disease (1) Acute kidney failure ICD Code: N17.9 - Acute kidney failure, unspecified Diagnosis: Principal Status: Acute (2) Transaminitis ICD Code: R74.0 - Nonspecific elevation of levels of transaminase and lactic acid dehydrogenase [LDH] (3) Metastatic breast cancer ICD Code: C50.919 - Malignant neoplasm of unspecified site of unspecified female breast Diagnosis: Principal (4) UTI (urinary tract infection) ICD Code: N39.0 - Urinary tract infection, site not specified Diagnosis: Principal Status: Acute (5) Anemia ICD Code: D64.9 - Anemia, unspecified Status: Acute Procedures None Brief History - From Admission Written by Zohra Owens, acting as scribe for [Elin] on 11/29/17 at 16: 38. 62-year-old female with past medical history significant for HER/ner over expressing metastatic breast cancer diagnosed in 2012, osteoporosis, peripheral neuropathy, and intractable nausea and vomiting. Patient is accompanied by who is currently at bedside and states that she presented to the emergency department as requested by her oncologist . is able to provide a history of patient's cancer, originally diagnosed in [place] back in 2012 treated initially with TDM1 however discontinued secondary to pneumonitis. Patient then traveled back here to [place] and establish care with Dr. Cordero. Reviewing EMR records patient was hospitalized in November of last year due to intractable nausea and vomiting. She was admitted to the hospital and cerebral mass with edema and hydronephrosis found. She was treated with IV Decadron and followed up with radiation oncology . Patient completed fractionated stereotactic radiotherapy for a left cerebellar lesion on 12/31/16. Plans were to repeat imaging in 6 months whether she was here in [place] or [place]. Patient had been traveling back and forth to [place] and [place] and in October of last year had increase in liver function tests. She was seen by gastroenterology while in [place] performed ERCP and localized biliary stricture was found, she underwent biliary stent placement of the common bile duct. Patient returned back to see Dr. Cordero in office on 11/23/17 who discussed liver compromise with patient as well as recommended gastroenterology referral. Patient was initiated on Herceptin on that visit and was due for second dose tomorrow. She however had labs done which showed decreased renal function and patient was instructed by Dr. Cordero to come to the hospital for further evaluation. Patient is seen and examined resting comfortably in stretcher with at bedside. and patient reports that over the past week they have noticed that patient's legs have increasingly become edematous. Patient has also noticed that for the past 3 days she has been having shortness of breath at rest as well as with activity. She denies any cough, fever, chills, nausea, vomiting, diarrhea. She has been urinating without any difficulties, denies hematuria, or constipation. Over the past several days patient is also been less mobile and has been this had to push her around in seat walker. Patient has also been experiencing loss of appetite, denies any nausea or vomiting. also mentions to me that he has noticed over the past several days the patient has been somewhat confused. Patient will make statements that don't make sense. Patient reports that she has felt pretty sleepy over the past several days and believes that this may be contributing to some of her confusion. She denies any recent change to her medications including pain medications. actually reports that patient has stopped taking her neuropathy medication altogether since she feels that this is not really effective and she doesn't really need it. tells me that patient will usually take morphine extended release 15 mg twice a day along with 10 mg of oxycodone twice a day, has been reports that patient will usually have pain control with this regimen. CBC/BMP: 11/30/17 0500 11/30/17 0500 Significant Findings Laboratory Tests Test 11/29/17 15:03 11/29/17 15:50 11/30/17 05:00 Red Blood Count 2.40 MIL/MM3 (4.00-5.30) 2.23 MIL/MM3 (4.00-5.30) Hemoglobin 7.9 GM/DL (11.6-15.3) 7.8 GM/DL (11.6-15.3) Hematocrit 24.3 % (35.0-46.0) 22.7 % (35.0-46.0) Mean Corpuscular Volume 101.3 FL (80.0-100.0) 101.7 FL (80.0-100.0) Red Cell Distribution Width 18.4 % (11.6-17.2) 18.4 % (11.6-17.2) Neutrophils % (Manual) 83 % (16-70) 84 % (16-70) Band Neutrophils % 13 % (0-6) 13 % (0-6) Lymphocytes % 2 % (9-44) 1 % (9-44) Neutrophils # (Manual) 8.1 TH/MM3 (1.8-7.7) Keratocytes OCC (NORMAL) Prothrombin Time 12.8 SEC (9.8-11.6) Activated Partial Thromboplast Time 51.3 SEC (24.3-30.1) Blood Urea Nitrogen 65 MG/DL (7-18) 66 MG/DL (7-18) Creatinine 2.74 MG/DL (0.50-1.00) 2.52 MG/DL (0.50-1.00) Albumin 2.1 GM/DL (3.4-5.0) 1.9 GM/DL (3.4-5.0) Alkaline Phosphatase 1492 U/L (45-117) 1284 U/L (45-117) Aspartate Amino Transf (AST/SGOT) 322 U/L (15-37) 275 U/L (15-37) Alanine Aminotransferase (ALT/SGPT) 103 U/L (10-53) 92 U/L (10-53) Total Bilirubin 12.2 MG/DL (0.2-1.0) 11.1 MG/DL (0.2-1.0) Sodium Level 127 MEQ/L (136-145) 129 MEQ/L (136-145) Chloride Level 95 MEQ/L (98-107) 95 MEQ/L (98-107) Carbon Dioxide Level 20.2 MEQ/L (21.0-32.0) 19.1 MEQ/L (21.0-32.0) Estimat Glomerular Filtration Rate 17 ML/MIN (>89) 19 ML/MIN (>89) Urine Color DARK-BROWN (YELLW/STRAW) Urine Turbidity CLOUDY (CLEAR) Urine Protein 30 mg/dL (NEG-TRACE) Urine Ketones TRACE mg/dL (NEG) Urine Occult Blood SMALL (NEG) Urine Bilirubin LARGE (NEG) Urine Urobilinogen GREATER THAN 12.0 MG/DL Urine Leukocyte Esterase LARGE (NEG) Urine RBC 11 /hpf (0-3) Urine WBC 111 /hpf (0-5) Urine WBC Clumps MOD (NONE) Urine Mucus FEW /lpf (OCC) Mean Corpuscular Hemoglobin 34.8 PG (27.0-34.0) Hospital Course Mrs. Anton is a 62 year old female. She was admitted secondary to acute kidney injury. She had been observed to have an upper trend in her creatinine. With IV hydration this has started to reverse. Presently she is asymptomatic. She will likely discharge to home. Contributions are most suspected to be related to UTI and possible dehydration. Imaging showed no direct invasion of metastatic cancer and kidney. Additionally at this point this does not appear to be an immune modulated response secondary to cancer either. She should continue to improve with good oral hydration and treatment of her UTI. Medically stable for discharge to home today. Follow-up with oncology as an outpatient. Pt Condition on Discharge: Stable Discharge Disposition: Discharge Home Discharge Time: <= 30 minutes Discharge Instructions DIET: Follow Instructions for: As Tolerated, No Restrictions Activities you can perform: Regular-No Restrictions Follow up Referrals: Oncology/Hematology - 1 Week with Yolanda Cordero MD PCP Follow-up - 2 Weeks New Medications: Lactobacillus Acidophilus (Lactobacillus Acidophilus) 1 Billion Cell Tab 1 TAB PO TIDAC for Nutritional Supplement, #30 TAB 0 Refills Sulfamethoxazole-Trimethoprim (Bactrim) 400-80 Mg Tab 1 TAB PO BID for Infection, #14 TAB 0 Refills Continued Medications: Dexamethasone (Dexamethasone) 4 Mg Tab 6 MG PO QID for for brain swelling on taper, #120 TAB 0 Refills Take 1 1/2 tab 4 times per day for 2 days then 1 tab 4 times per day for 2 days then 1 tab twice per day Gabapentin (Gabapentin) 300 Mg Cap 600 MG PO BID, #60 CAP 0 Refills Morphine ER (Morphine ER) 15 Mg Tab 15 MG PO BID for Pain Management, TAB 0 Refills Ondansetron (Zofran) 4 Mg Tab 4 MG PO Q8HR PRN for NAUSEA OR VOMITING, TAB 0 Refills Oxycodone (Oxycodone) 10 Mg Tab 10 MG PO Q4H PRN for PAIN, TAB 0 Refills Pantoprazole (Protonix) 40 Mg Tab 40 MG PO DAILY PRN for while on decadron, #30 TAB 0 Refills Pregabalin (Lyrica) 25 Mg Cap 25 MG PO BID, #60 CAP 0 Refills Temazepam (Restoril) 15 Mg Cap 15 MG PO HS PRN for sleep, #15 CAP Omid Austin MD Nov 30, 2017 15:36
--- NOTE | 2017-11-30 16:45 | PD.CONS ---
HPI History of Present Illness This is a 62 year old lady with stage IV metastatic breast cancer with mets to liver and bone who presented from her oncologist for concerns over kidney function and ARSEN. She sees Dr Cordero, is on Herceptin. Cannot do other chem now d/t liver and kidney function. GI has been consulted for elevated bilirubin and possibility of further stenting. She had ERCP and metallic stent placement [facility] in [place] in 10/2017. She has physicians who follow her there as well as here. CT showed progression metastatic dz, increased size liver mass, new retroperitoneal lymphadenoapthy, new free fluid lpelvis, pulmonary nodules, bone mets. She deneis abd pain, vomiting, blood in stool, tarry stool. Admits occasional nausea. Her provides most of hx, some hx also obtained from EMR. Since this consult they have decided they wish to pursue outpt work up and want to go home. (Sakshi Crawford) PFSH Past Medical History Progressive metastatic breast cancer Osteoporosis Peripheral neuropathy Intractable N/V Radiation Therapy (2013 [facility] [place] [place] [place] 2017.) Past Surgical History Port placement Colonoscopy in 2008 Liver biopsy-in 2012 ERCP with common bile duct stent-November 13, 2017 . (Sakshi Crawford) Coded Allergies: ibandronate sodium (Unverified Allergy, Severe, Twitching, 11/29/17) like electric shock per pt alendronate sodium (Unverified Allergy, Unknown, 11/29/17) Uncoded Allergies: bon (Allergy, Severe, Twitching, 12/04/16) states "electric shock" Family History Mother- at age 64. She had cancer Father- at age 63 from a heart attack Sister of lung cancer Brother of CHF complications. Had extensive cardiac disease Patient has 2 adult children son and daughter, 2 sisters and 2 brothers who are still living and well. . Social History Tobacco: Use to smoke, quit 15 yrs ago. Alcohol: socially Illicit drug use: denies (Sakshi Crawford) Review of Systems Gastrointestinal: COMPLAINS OF: Nausea, DENIES: Abdominal pain, Black stools, Bloody stools, Vomiting, Hematemesis otherwise noncontributory (Sakshi Crawford) GI Exam Vitals I&O Vital Signs Date Time Temp Pulse Resp B/P (MAP) Pulse Ox O2 Delivery O2 Flow Rate FiO2 11/30/17 12:00 96.6 112 18 95/54 (68) 97 11/30/17 08:00 97.0 110 18 88/53 (65) 98 11/30/17 07:25 87/49 (62) 11/30/17 04:00 96.7 110 16 84/48 (60) 94 11/30/17 00:00 95.7 100 16 94/54 (67) 95 11/29/17 23:00 96.7 105 16 96/52 (67) 92 11/29/17 20:30 98.0 104 16 99/56 (70) 93 11/29/17 19:30 98 11/29/17 18:39 101 18 131/53 (79) 100 Room Air I/O 11/29/17 11/29/17 11/29/17 11/30/17 11/30/17 11/30/17 07:00 15:00 23:00 07:00 15:00 23:00 Intake Total 550 ml 200 ml Balance 550 ml 200 ml Intake Oral 200 ml IV Total 550 ml Imaging Last Impressions Lower Extremity Ultrasound 11/29/17 0000 Signed Impressions: Service Date/Time: Wednesday, November 29, 2017 15:19 - CONCLUSION: 1. No DVT identified. 2. Edematous changes within both lower extremities. Omid Gupta MD Abdomen/Pelvis CT 11/29/17 0000 Signed Impressions: Service Date/Time: Wednesday, November 29, 2017 15:55 - CONCLUSION: 1. Findings indicate interval progression of metastatic disease when compared to the prior CT from approximately 1 year ago. The liver mass has significantly increased in size and there is a new retroperitoneal lymphadenopathy in the abdomen. There is new free fluid in the pelvis. 2. Innumerable small pulmonary nodules at the lung bases characteristic of metastatic disease. There are small associated bilateral pleural effusions. 3. Heterogeneous bones with osseous metastases metastatic disease. There are persistent sclerotic and lucent lesions, some of which have increased in size over the one year interval. John Velasquez MD Laboratory Test 11/30/17 05:00 White Blood Count 7.6 TH/MM3 Red Blood Count 2.23 MIL/MM3 Hemoglobin 7.8 GM/DL Hematocrit 22.7 % Mean Corpuscular Volume 101.7 FL Mean Corpuscular Hemoglobin 34.8 PG Mean Corpuscular Hemoglobin Concent 34.2 % Red Cell Distribution Width 18.4 % Platelet Count 165 TH/MM3 Mean Platelet Volume 7.3 FL CBC Comment AUTO DIFF Differential Total Cells Counted 100 Neutrophils % (Manual) 84 % Band Neutrophils % 13 % Lymphocytes % 1 % Monocytes % 2 % Neutrophils # (Manual) 7.4 TH/MM3 Differential Comment FINAL DIFF MANUAL Platelet Estimate NORMAL Platelet Morphology Comment NORMAL Blood Urea Nitrogen 66 MG/DL Creatinine 2.52 MG/DL Random Glucose 75 MG/DL Total Protein 6.5 GM/DL Albumin 1.9 GM/DL Calcium Level 8.7 MG/DL Alkaline Phosphatase 1284 U/L Aspartate Amino Transf (AST/SGOT) 275 U/L Alanine Aminotransferase (ALT/SGPT) 92 U/L Total Bilirubin 11.1 MG/DL Sodium Level 129 MEQ/L Potassium Level 4.7 MEQ/L Chloride Level 95 MEQ/L Carbon Dioxide Level 19.1 MEQ/L Anion Gap 15 MEQ/L Estimat Glomerular Filtration Rate 19 ML/MIN Date/Time Source Procedure Growth Status 11/29/17 15:50 Urine Clean Catch Urine Culture - Preliminary IMMATURE GROWTH - REINCUBATE Resulted Physical Examination HEENT: PERRL; normocephalic; atraumatic; icteric CHEST: CTA CARDIAC: RRR ABDOMEN: Soft, nondistended, RUQ TTP; bowel sounds are present in all four quadrants. EXTREMITIES: No clubbing, cyanosis, or edema. SKIN: Normal; no rash; + jaundice. [employer]:lethargic (Sakshi Crawford) Assessment and Plan Plan ASSESSMENT - elevated LFTs - liver mets. tbil has actually improved since 11/23/17. s/p ERCP with metallic stent 10/[address] [place] as above. pt and wish to pursue outpt w/u. could consider MRCP to further evaluate whether or not further stenting appropriate or beneficial d/w radiology, MRCP is possible evenwith metallic stent but they will need info on type of stent. PLAN - f/u with GI after d/c - consider outpt MRCP - f/u with oncology - supportive care pt seen by myself and Dr Zamora and this note is written on his behalf (Sakshi Crawford) Physician Comments Patient seen and examined Agree with above Continue with current supportive care Monitor labs Patient with elevated liver function tests, jaundice, abnormal CT of the abdomen , with liver metastases imaging would be necessary to figure out if there is any dominant stricture that could be bypassed with a stent this can be done on an outpatient basis (Cassius Zamora MD) Sakshi Crawford Nov 30, 2017 16:45 Cassius Zamora MD Nov 30, 2017 21:15
== END 2017-11-30 18:16 | disposition home or self-care (01) | DRG 683 ==
LOC: NEPE 14:16 → NEDA 16:35 → NEDH 20:35 → N06A 21:48
PROVIDERS: ADMIT Hospitalist; ATTEND Hospitalist
DX: N17.0 Acute kidney failure with tubular necrosis (principal); N39.0 Urinary tract infection, site not specified; J90 Pleural effusion, not elsewhere classified; C78.01 Secondary malignant neoplasm of right lung; C78.7 Secondary malignant neoplasm of liver and intrahepatic bile duct; C78.02 Secondary malignant neoplasm of left lung; C79.51 Secondary malignant neoplasm of bone; C79.31 Secondary malignant neoplasm of brain; D63.0 Anemia in neoplastic disease; C50.919 Malignant neoplasm of unspecified site of unspecified female breast; Z68.1 Body mass index [BMI] 19.9 or less, adult; I95.9 Hypotension, unspecified; R60.0 Localized edema; G62.9 Polyneuropathy, unspecified; R11.2 Nausea with vomiting, unspecified; R59.0 Localized enlarged lymph nodes; R63.0 Anorexia; M81.0 Age-related osteoporosis without current pathological fracture; Z80.1 Family history of malignant neoplasm of trachea, bronchus and lung; Z87.891 Personal history of nicotine dependence; Z92.3 Personal history of irradiation
CPT/HCPCS: 74176; 80053; 81001; 83880; 85007; 85027; 85610; 85730; 86850; 86900; 86901; 86920; 87086; 93970; 96360; J0696; J2405; J7040